=== PATIENT | male | born 1935 | race Caucasian/White ===

== ENCOUNTER 2023-10-13 12:41 | Inpatient (IN) ==
[2023-10-13 13:12] LABS: iSTAT Creatinine 1.3 mg/dl (0.6-1.3); iSTAT Hemoglobin 13.6 g/dl (14.0-18.0); iSTAT Ionized Calcium 1.22 mmol/l (1.12-1.32); iSTAT Potassium 4.3 mmol/L (3.3-5.0)
[2023-10-13 13:46] LABS: Alanine Aminotransferase 12 U/L (7-52); Albumin Globulin Ratio 1.2 (0.9-2); Albumin Level 4.1 gm/dl (3.4-5.0); Alkaline Phosphatase 70 U/L (34-104); Anion Gap 4 (3-11); Aspartate Aminotransferase 17 U/L (13-39); BUN Creatinine Ratio 24.4 (10-20); Bilirubin,Total 0.4 mg/dl (0.2-1.0); Blood Urea Nitrogen 30 mg/dl (6-23); Calcium 9.5 mg/dl (8.6-10.3); Carbon Dioxide 26 mmol/L (21-32); Chloride 112 mmol/L (98-107); Est GFR (African American) 60.4 ml/min; Est GFR (Non-African American) 52.1 ml/min; Globulin 3.5 gm/dl (2.5-4.0); Glucose 116 mg/dl (70-99(Fasting)); Lipase 16 U/L (11-82); Magnesium 2.3 mg/dl (1.7-2.4); Potassium 4.4 mmol/L (3.5-5.1); Sodium 142 mmol/L (136-145); Total Protein 7.6 gm/dl (6.0-8.3)
[2023-10-13 13:50] LABS: Troponin I High Sensitivity 19.6 pg/ml (0-20)
[2023-10-13 13:52] LABS: Partial Thromboplastin Ratio 0.9; Partial Thromboplastin Time 26 Seconds (21-31); Prothrombin Time 11.2 Seconds (9.0-12.0)
--- NOTE | 2023-10-13 13:53 | History & Physical Report ---
Date of Service October 13, 2023 Assessment & Plan (1) CHB (complete heart block): (2) Severe aortic stenosis: (3) BPH (benign prostatic hyperplasia): Plan Mr. Peacock is an 88 year old gentleman with history of aortic stenosis, BPH, GERD, COPD, HLD, HTN who is admitted due to dizziness and found to have high grade AV block with rates in 30s. Patient initially was hemodynamically stable outside of bradycardia, however, became hypotensive prompting x1 atropine and dopamine drip initiation in ED. Patient to be admitted to ICU for hemodynamic monitoring and inotrope while awaiting pacemaker placement. #Symptomatic bradycardia #High degree AV block #History of sinus bradycardia -Not on AV bj -Blood pressure currently stable -Admit ICU for cardiac monitoring iso severe bradycardia -Cardiology consult -continue dopamine -EP consult, pending device placement -Pacer pads in place NPO Appreciate Certified Medical Transcriptionist support while pending device placement Follow up TSH and lyme #COPD #history of Silicosis -Not on inhalers stable, no O2 requirement #Severe aortic stenosis -Not on any medications -Historically prefers conservative therapies and declines invasive procedures -Repeat ECHO pending #Gastroesophageal reflux disease without esophagitis -Not on PPI -PPI while in ICU #Spinal stenosis of lumbar region without neurogenic claudication -No active symptoms, not on medications at this time #BPH with obstruction/lower urinary tract symptoms -On home dusteride and terazosin -Will hold Terazosin at this time 2/2 above and bradycardia #Hyperlipidemia with target LDL less than 130 -Historically declined statin therapy #Meningioma -0.9cm, stable DVT scd ICU until device placement then plan for downgrade once stable and paced Admission and Anticipated Discharge Date Admission Date: Time spent evaluating patient, direct bedside care, chart review, placing orders, interpretation of diagnostic studies, discussion with consultants, patient, and family members, as well as other required patient management activities is 60 minutes. History of Present Illness Chief Complaint: dizziness Primary Care Provider: NO PCP Mr. Peacock is an 88 year old gentleman with past medical history remarkable for aortic stenosis, BPH, GERD, COPD, HLD, HTN who is admitted due to dizziness and found to have high grade AV block with rates in 30s. Patient reported ongoing issues with dizziness on exertion. Patient presented in 08/2023 for similar concerns but work up was negative at that time--EKG with 1st av block noted at that time. On presentation, In the ED, vitals were notable for BP of 150s initially then 70s prompting atropine and dopamine, HR of 30s with small increase to 40s with atropine and O2 sat of low 90s. EKG with AV node dissociation. ED interventions: atropine, dopamine Consultants: Cardiology. EP, ICU Patient to be admitted to ICU for further evaluation and management of high degree AV block pending urgent device placement Allergies Allergy/AdvReac Type Severity Reaction Status Date / Time No Known Allergies Allergy Verified 09/16/23 17:37 Home Medications Medication Instructions Recorded Confirmed Type terazosin 10 mg capsule 10 mg PO QAM 03/20/19 10/13/23 History dutasteride 0.5 mg capsule 0.5 mg PO QAM 09/25/21 10/13/23 History gabapentin 100 mg capsule 100 mg PO HS 12/28/21 10/13/23 History Past Med/Surg History Medical History Spinal stenosis Hyperlipemia Sleep apnea Lumbago History of esophageal reflux Chronic back pain Heart murmur Family History Other No significant family history Social History Smoking Status: Never smoker packs per day: 1; Hx Alcohol Use: No Hx Substance Use: No Preferred Language: Taiwanese Communication Ability: Effective Custom Framing Specialist Required: No Beliefs That Will Affect Care: None marital status: Current Living Situation: Spouse Feels Safe at Home: Yes Assistive Devices: Glasses Review of Systems Review of Systems: Constitutional: (-) fever/chills, (-) recent loss of weight, (-) appetite changes, (-) night sweats. Head: (-) headache, ++ dizziness. Eye: (-) blurring of vision, (-) double vision, (-) redness. Ear: (-) hearing loss, (-) discharge, (-) vertigo Nose: (-) discharge, (-) bleeding, (-) congestion, (-) post nasal drip. Throat: (-) sore throat, (-) hoarseness of voice, (-) odynophagia. Cardiovascular: (-) chest pain, (-) palpitations, (-) syncope, (-) orthopnea, (- ) PND, (-) leg swelling. Respiratory: (-) shortness of breath, (-) cough, (-) wheezing, (-) hemoptysis. Neuro: (-) weakness in extremities, (-) numbness, (-) tingling, (-) tremor. Gastrointestinal: (-) belly pain, (-) belly distension, (-) nausea, (-) vomiting, (-) diarrhea, (-) constipation, Genitourinary: (-) hematuria, (-) dysuria, (-) polyuria, (-) hesitancy, (-) frequency, (-) urinary incontinence. Musculoskeletal: (-) myalgia, (-) arthralgia. Skin: (-) rashes. Physical Exam Physical Exam: GENERAL APPEARANCE: AxOx4, tired appearing frail gentleman HEENT: NC, AT. MMM. EOMI, clear conjunctiva, oropharynx clear. NECK: Supple without lymphadenopathy. No stiffness or restricted ROM. HEART: irregular, bradycardic LUNGS: CTAB, moving air well. No crackles or wheezes are heard. ABDOMEN: Soft, nontender, nondistended with good bowel sounds heard. EXTREMITIES: Without cyanosis, clubbing or edema. NEUROLOGICAL: Grossly nonfocal. Alert and oriented, moving all 4 extremities. CN not formally tested but appear grossly intact. Observed to ambulate with normal gait. Skin: Warm and dry without any rash. Results & Data Results & Data Vital Signs (Past 12 Hours) Vital Signs Temp Pulse Resp BP Pulse Ox O2 Del Method 10/13/23 13:30 37 L 18 156/73 H 95 10/13/23 13:15 40 L 16 146/80 H 97 10/13/23 13:13 40 L 10/13/23 12:44 36.8 C 38 L 18 137/59 L 98 Room Air Laboratory Results [facility] 10/13/23 12:55 Sodium 142 Potassium 4.4 Chloride 112 H Carbon Dioxide 26 BUN 30 H Creatinine 1.23 Glucose 116 H Calcium 9.5 Liver Function 10/13/23 Range/Units 12:55 Total Bilirubin 0.4 (0.2-1.0) mg/dl AST 17 (13-39) U/L ALT 12 (7-52) U/L Alkaline Phosphatase 70 (34-104) U/L Albumin 4.1 (3.4-5.0) gm/dl Medications Administered Home Medications Medication Instructions Recorded Confirmed Last Taken terazosin 10 mg capsule 10 mg PO [facility] 03/20/19 10/13/23 09/16/23 dutasteride 0.5 mg capsule 0.5 mg PO [facility] 09/25/21 10/13/23 09/16/23 gabapentin 100 mg capsule 100 mg PO 12/28/21 10/13/23 09/15/23
--- NOTE | 2023-10-13 14:02 | XRay Report ---
XR chest 1V portable HISTORY: Chest pain, nonspecific COMPARISON: Chest 09/16/2023. FINDINGS: There are low lung volumes. No pneumothorax. The heart is mildly enlarged. There is diffuse interstitial/vascular thickening consistent with pulmonary edema. This has progressed in the interva l. Incidental note is made of a right azygos lobe. No focal lung consolidations to suggest a pneumoni a. Trace bilateral pleural effusions. IMPRESSION: Interval development of mild interstitial pulmonary edema and trace bilateral pleural effusions. ACT 112: Negative or not required by law. Electronically signed by: Michel Quezada M.D. 10/13/2023 1:59 PM
[2023-10-13] MEDS: DOPamine 400MG / 250ML D5W IV ONE (14:45)
--- NOTE | 2023-10-13 14:49 | History & Physical Bridge Note ---
Date of Service October 13, 2023 History & Physical Bridge Note I have examined the patient, reviewed the History & Physical and in the interval since the performance of the History & Physical I have noted the following changes of clinical significance: pt with CHB recommended an urgent pacemaker. Discussed the procedure and potential risks; consents signed.
--- NOTE | 2023-10-13 14:50 | Pre Anesthesia Assessment ---
Date of Service October 13, 2023 Pre Sedation Assessment Vital Signs Temp Pulse Resp BP Pulse Ox O2 Del Method 10/13/23 13:30 37 L 18 156/73 H 95 10/13/23 13:15 40 L 16 146/80 H 97 10/13/23 13:13 40 L 10/13/23 12:58 95 Room Air 10/13/23 12:47 Room Air 10/13/23 12:44 36.8 C 38 L 18 137/59 L 98 Room Air Cardiovascular + bradycardic Respiratory normal respiratory effort, lungs clear to auscultation Pre-Sedation Airway Assessment Smoking Status: Never smoker Hx Sleep Apnea: No Hx Difficult Intubation: No Short, Thick Neck: No Thyromental Distance: < 3.5 Finger Breadths Oral Cavity: + Dental Abnormalities Mallampati Class: II ASA: ASA3 NPO Status Date of Last Intake of Fluids: 10/13/23 Time of Last Intake of Fluids: 10:00 Date of Last Intake of Solid Food: 10/13/23 Time of Last Intake of Solid Foods: 10:00 Procedure Planning Contraindications for Sedation: none Current Medications Reviewed: Yes Notes The planned sedation has been discussed with the patient. Informed Consent was obtained. I have identified the patient, determined the appropriateness of sedation and have assessed the patient immediately prior to the procedure. All medicine(s) and interventions are by my order.
--- NOTE | 2023-10-13 14:53 | Cardiology Consultation ---
Date of Consultation October 13, 2023 Assessment & Plan (1) CHB (complete heart block): (2) Severe aortic stenosis: Plan IMPRESSION: 88-year-old male presenting with symptomatic complete heart block with hemodynamic instability and heart failure. Known severe aortic stenosis-- now classified as critical, declining invasive workup in the past. PLAN: CHB: Symptomatic complete heart block with hemodynamic instability, systolics in the 70s. Patient given atropine and started on dopamine infusion. NPO for emergent permanent pacemaker. Pacer pads in place and connected. Preliminary echo results showed AV velocities in the 5s, now classified as severe. Mildly hypervolemic on exam Lyme Pending. TSH ordered. Finalized Echocardiogram pending. Severe aortic stenosis: Velocities 4.4 on echo 2021. Declining invasive workup in the past. Velocities now in the 5s, critical noted. Case discussed with Dr. Beasley. Further recommendations pending assessment. I spent a total of 40 minutes on the date of service in preparation, delivery, and documentation of the care provided to the patient excluding any time spent in the performance of separately billed services. ALISIA Vallejo Department of Cardiology, [facility] This chart was completed in part utilizing Speech Voice Recognition Software. Grammatical errors, random word insertions, pronoun errors, and incomplete sentences are an occasional consequence of this system due to software limitations, ambient noise, and hardware issues. Any formal questions or concerns about the content, text, or information contained within the body of this dictation should be directly addressed to the provider for clarification. Supervising Physician Co-Signing Physician Notes Patient was seen and personally examined. Full assessment and plan as outlined by advanced provider above. Care and plan discussed in detail and endorsed personally 88-year-old male with severe aortic stenosis underlying conduction system disease with recent symptoms of lightheadedness and near syncope. Symptoms worsen last 24 hours ultimately resulting in ER presentation. EKG on presentation demonstrates A-V dissociation with ventricular escape rhythm in the 30s. During examination blood pressure notably declined and patient treated with IV atropine and begun on IV dopamine Plan dual-chamber pacemaker urgently today Previously tolerable at low-level activities prior to current complaints History of Present Illness Reason for Consultation: CHB Requesting Physician: Kae romano History of Present Illness 88-year-old male who presented to [facility] emergency department due to a 1-day history of dizziness and significant fatigue. On arrival patient was found to be in complete heart block with idioventricular escape beats on EKG as well and as telemetry. Heart rates ranging in the 30s to 40s. Patient chest pain-free but is having shortness of breath with minimal exertion. Denies palpitations. Notable lightheadedness but no syncope. Normally describes himself as a relatively active individual and enjoys spending time outside. Denies any recent tick bites. Lyme blood work pending. He is not currently on any AV kolby blocking agents Chest x-ray showing mild interstitial pulmonary edema with trace bilateral pleural effusions. Recently seen in the ED on 09/16/2023 due to intermittent dizziness. Symptomatic improvement with IV hydration. EKG at the time showed sinus bradycardia with a first-degree AV block with rates in the 50s. Patient was discharged home to follow-up as an outpatient. 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 Allergies Allergy/AdvReac Type Severity Reaction Status Date / Time No Known Allergies Allergy Verified 09/16/23 17:37 Home Medications Medication Instructions Recorded Confirmed Type terazosin 10 mg capsule 10 mg PO QAM 03/20/19 10/13/23 History dutasteride 0.5 mg capsule 0.5 mg PO QAM 09/25/21 10/13/23 History gabapentin 100 mg capsule 100 mg PO HS 12/28/21 10/13/23 History Patient History Medical History Spinal stenosis Hyperlipemia Sleep apnea Lumbago History of esophageal reflux Chronic back pain Heart murmur Family History Other No significant family history Social History Smoking Status: Never smoker packs per day: 1; Hx Alcohol Use: No Hx Substance Use: No Preferred Language: Sami Communication Ability: Effective Assisted Living Director Required: No Beliefs That Will Affect Care: None marital status: Current Living Situation: Spouse Feels Safe at Home: Yes Assistive Devices: Glasses Review of Systems Review of Systems: All systems reviewed & are unremarkable except as noted in HPI & below Physical Exam Constitutional: + ill appearing; no acute distress Neck: normal visual inspection and trachea midline Respiratory: normal respiratory effort Auscultation: + rales (BL bases ); no rhonchi and no wheezes Cardiovascular: Rate/Rhythm: + bradycardic (irregular ) Heart Sounds: normal S1, normal S2 (diminished) and + murmur (+3/6 systolic murmur ) Vessels: no JVD Extremities: no edema Gastrointestinal (Abdomen): Inspection/Auscultation: + abdomen distended Percussion/Palpation: + abdomen firm; abdomen nontender Skin: no rashes, warm and dry Neurologic: PERRL, EOMI, accommodation nl, no face palsy, no dysarthria Psychiatric: A+Ox3, euthymic affect Results & Data Vital Signs (Past 12 Hours) Vital Signs Temp Pulse Resp BP Pulse Ox O2 Del Method 10/13/23 13:30 37 L 18 156/73 H 95 10/13/23 13:15 40 L 16 146/80 H 97 10/13/23 13:13 40 L 10/13/23 12:58 95 Room Air 10/13/23 12:47 Room Air 10/13/23 12:44 36.8 C 38 L 18 137/59 L 98 Room Air Laboratory Results Cardiac Enzymes 10/13/23 Range/Units 12:55 AST 17 (13-39) U/L Troponin I High Sens 19.6 (0-20) pg/ml Coagulation 10/13/23 Range/Units 12:55 PT 11.2 (9.0-12.0) Seconds APTT 26 (21-31) Seconds Comprehensive Metabolic Panel 10/13/23 Range/Units 12:55 Sodium 142 (136-145) mmol/L Potassium 4.4 (3.5-5.1) mmol/L Chloride 112 H (98-107) mmol/L Carbon Dioxide 26 (21-32) mmol/L BUN 30 H (6-23) mg/dl Creatinine 1.23 (0.6-1.4) mg/dl Glucose 116 H (70-99(Fasting)) mg/dl Calcium 9.5 (8.6-10.3) mg/dl AST 17 (13-39) U/L ALT 12 (7-52) U/L Alkaline Phosphatase 70 (34-104) U/L Total Protein 7.6 (6.0-8.3) gm/dl Albumin 4.1 (3.4-5.0) gm/dl Intake and Output 10/12/23 10/13/23 10/13/23 22:59 06:59 14:59 Other: Weight 92 kg Weight Measurement Method Built in [facility] Patient Weight 10/14/23 06:59 Weight 92 kg Diagnostic Findings Inpatient echo Pending* Outpatient echocardiogram 11/06/2021 The examination is adequate to evaluate the referral indication. There was sinus bradycardia during the examination. The LV wall thickness is mildly increased (concentric). The left ventricular wall motion is normal. The qualitative LV ejection fraction is 60-64% (normal). The left atrium is mildly enlarged. The left ventricular diastolic function is mildly abnormal (grade I). The aortic valve is severely calcified. Severe aortic valve stenosis is present. The maximum continues wave Doppler velocity across aortic valve= 4.4 m/s, Mean Gradient=40 mm Hg, PAULINA=0.7 cm2. Trace aortic regurgitation is present. Mild tricuspid regurgitation is present. There is no evidence of pulmonary hypertension. The aortic root and proximal ascending aorta are normal sized. Compared to the previous study dated 12/20/2018, the severity of the aortic valve stenosis has progressed, severe aortic stenosis now present.
[2023-10-13 15:28] LABS: Thyroid Stimulating Hormone 3.828 uIu/ml (0.300-4.500)
[2023-10-13] MEDS: LIDOCAINE 1% LOCAL 20 ML VIAL ONE (15:56)
[2023-10-13] MEDS: WATER, STERILE FOR INJ 10 ML VIAL ONE (15:56)
[2023-10-13] MEDS: BUPIVACAINE 0.25% PF 30 ML VIAL ONE (15:56)
[2023-10-13] MEDS: ceFAZolin 330 MG/ML 1 GM VIAL ONE (15:56)
[2023-10-13] MEDS: VANCOMYCIN HCL 1000MG/20ML VIAL ONE (15:56)
--- NOTE | 2023-10-13 16:09 | Critical Care Consultation ---
Date of Consultation October 13, 2023 Assessment & Plan (1) CHB (complete heart block): (2) Severe aortic stenosis: Plan Impression: 88-year-old male presenting with complete heart block requiring pressors and taken urgently to the [facility] for permanent pacemaker. Recommendations: 1 player neurologic: No acute issues. 2. Cardiovascular: Complete heart block: Will reevaluate status post pacemaker. If the patient no longer requires pressors, it is unlikely he will require ICU. History of severe declining intervention previously. Follow-up echocardiogram pending. Per cardiology 3. Respiratory: History of COPD. No acute issues. 4. GI: N.p.o. for now but should be able to advance diet once pacemaker is implanted. 5. : History of BPH. Can restart medications once pacemaker in place. 6. Renal: No acute issues. Acid-base status electrolytes and fluid status adequate. 7. Heme-onc: No acute issues. 8. ID: No acute issues. Patient was critically ill on presentation requiring life-sustaining therapies. He is at significant risk of clinical deterioration without significant intervention. Total 35 minutes in critical care time was spent in evaluation management and coordination of care for this patient. Once the patient undergoes permanent pacemaker, he may not require ICU level care. Will reassess once he is paced. Thanks for the opportunity participating the care of this patient. Feel free to contact us with questions or concerns History of Present Illness Attending Physician: Cole Beasley MD History of Present Illness Asked by hospitalist to assist in evaluation of this patient with complete heart block and hypotension. History is obtained from of the electronic medical record as well as discussion with the hospitalist service. Patient is an 88-year-old male with a history of aortic stenosis and COPD who was brought to the hospital with dizziness and found to have complete heart block. He was initiated on dopamine in the emergency room but deteriorated and required higher doses and atropine. He was taken urgently to the electrophysiology lab for permanent pacemaker. The patient previously was noted to have a first-degree AV block. He has not had any falls or trauma. He denies chest pain. Does have known severe aortic stenosis but is apparently been fairly functional and had declined invasive procedures previously. Allergies Allergy/AdvReac Type Severity Reaction Status Date / Time No Known Allergies Allergy Verified 09/16/23 17:37 Home Medications Medication Instructions Recorded Confirmed Type terazosin 10 mg capsule 10 mg PO QAM 03/20/19 10/13/23 History dutasteride 0.5 mg capsule 0.5 mg PO QAM 09/25/21 10/13/23 History gabapentin 100 mg capsule 100 mg PO HS 12/28/21 10/13/23 History Patient History Medical History Spinal stenosis Hyperlipemia Sleep apnea Lumbago History of esophageal reflux Chronic back pain Heart murmur Family History Other No significant family history Social History Smoking Status: Never smoker packs per day: 1; Hx Alcohol Use: No Hx Substance Use: No Preferred Language: Mozambican Communication Ability: Effective Spin Table Operator Required: No Beliefs That Will Affect Care: None marital status: Current Living Situation: Spouse Feels Safe at Home: Yes Assistive Devices: Glasses Review of Systems Review of Systems: Please refer to admission H&P. No additions or deletions Physical Exam Constitutional: + ill appearing; no acute distress Neck: normal visual inspection and trachea midline Respiratory: normal respiratory effort Auscultation: + rales (BL bases ); no rhonchi and no wheezes Cardiovascular: Rate/Rhythm: + bradycardic (irregular ) Heart Sounds: normal S1, normal S2 (diminished) and + murmur (+3/6 systolic murmur ) Vessels: no JVD Extremities: no edema Gastrointestinal (Abdomen): Inspection/Auscultation: + abdomen distended Percussion/Palpation: + abdomen firm; abdomen nontender Skin: no rashes, warm and dry Neurologic: PERRL, EOMI, accommodation nl, no face palsy, no dysarthria Psychiatric: A+Ox3, euthymic affect Results & Data Results & Data Vital Signs (Past 12 Hours) Vital Signs Temp Pulse Resp BP BP Pulse Ox O2 Del Method 10/13/23 15:05 16 116/53 L 92 Room Air 10/13/23 14:45 39 L 12 158/60 H 94 10/13/23 14:41 43 L 19 172/64 H 99 10/13/23 14:30 37 L 19 73/59 L 98 10/13/23 14:15 36 L 20 170/79 H 97 10/13/23 14:00 36 L 20 166/72 H 97 10/13/23 13:45 37 L 11 L 151/85 H 97 10/13/23 13:30 37 L 18 156/73 H 95 10/13/23 13:15 40 L 16 146/80 H 97 10/13/23 13:13 40 L 10/13/23 12:58 95 Room Air 10/13/23 12:47 Room Air 10/13/23 12:44 36.8 C 38 L 18 137/59 L 98 Room Air Critical Care Results & Data Vital Signs (Past 12 Hours) Vital Signs Temp Pulse Resp BP BP Pulse Ox O2 Del Method 10/13/23 15:05 16 116/53 L 92 Room Air 10/13/23 14:45 39 L 12 158/60 H 94 10/13/23 14:41 43 L 19 172/64 H 99 10/13/23 14:30 37 L 19 73/59 L 98 10/13/23 14:15 36 L 20 170/79 H 97 10/13/23 14:00 36 L 20 166/72 H 97 10/13/23 13:45 37 L 11 L 151/85 H 97 10/13/23 13:30 37 L 18 156/73 H 95 10/13/23 13:15 40 L 16 146/80 H 97 10/13/23 13:13 40 L 10/13/23 12:58 95 Room Air 10/13/23 12:47 Room Air 10/13/23 12:44 36.8 C 38 L 18 137/59 L 98 Room Air Lab & Micro Results (Past 24 Hours) No Data to Display Na 142 mmol/L (136-145) 10/13/23 K 4.4 mmol/L (3.5-5.1) 10/13/23 Cl 112 mmol/L (98-107) H 10/13/23 CO2 26 mmol/L (21-32) 10/13/23 Anion Gap 4 (3-11) 10/13/23 BUN 30 mg/dl (6-23) H 10/13/23 Creatinine 1.23 mg/dl (0.6-1.4) 10/13/23 Estimated GFR ( Amer) 60.4 ml/min 10/13/23 Estimated GFR (Non-Af Amer) 52.1 ml/min 10/13/23 BUN/Creatinine Ratio 24.4 (10-20) H 10/13/23 Glu 116 mg/dl (70-99(Fasting)) H 10/13/23 Ca 9.5 mg/dl (8.6-10.3) 10/13/23 Total Bilirubin 0.4 mg/dl (0.2-1.0) 10/13/23 AST 17 U/L (13-39) 10/13/23 ALT 12 U/L (7-52) 10/13/23 Alkaline Phosphatase 70 U/L (34-104) 10/13/23 TP 7.6 gm/dl (6.0-8.3) 10/13/23 Albumin 4.1 gm/dl (3.4-5.0) 10/13/23 Globulin 3.5 gm/dl (2.5-4.0) 10/13/23 Albumin/Globulin Ratio 1.2 (0.9-2) 10/13/23 Mg 2.3 mg/dl (1.7-2.4) 10/13/23 12:55 Calcium Level 9.5 mg/dl (8.6-10.3) 10/13/23 12:55 Prothromb Time International Ratio 1.0 (0.9-1.1) 10/13/23 12:5 5 Diagnostic Findings (Past 24 Hours) Chest X-Ray 10/13/23 12:58 XR chest 1V portable HISTORY: Chest pain, nonspecific COMPARISON: Chest 09/16/2023. FINDINGS: There are low lung volumes. No pneumothorax. The heart is mildly enlarged. There is diffuse interstitial/vascular thickening consistent with pulmonary edema. This has progressed in the interval. Incidental note is made of a right azygos lobe. No focal lung consolidations to suggest a pneumonia. Trace bilateral pleural effusions. IMPRESSION: Interval development of mild interstitial pulmonary edema and trace bilateral pleural effusions. ACT 112: Negative or not required by law. Electronically signed by: Michel Quezada M.D. 10/13/2023 1:59 PM RT Ventilator Mngmt (Last Documented) Ventilator Ordered Settings Respiratory Rate 16 10/13/23 15:05 Ventilator - PT Measurements Respiratory Rate 16 Coding Level of Care Code 25245 CRITICAL CARE 1ST 30-74M Diagnoses CHB (complete heart block) I44.2 Severe aortic stenosis I35.0
[2023-10-13] MEDS: MIDAZOLAM HCL 1 MG/ML 2ML VIAL ONE (16:16)
[2023-10-13] MEDS: fentaNYL citrate PF 100 MCG/2 ML VIAL ONE (16:17)
--- NOTE | 2023-10-13 16:29 | Post Anesthesia Assessment ---
Date of Service October 13, 2023 Post Sedation Assessment Vital Signs Temp Pulse Resp BP BP Pulse Ox O2 Del Method 10/13/23 15:05 16 116/53 L 92 Room Air 10/13/23 14:45 39 L 12 158/60 H 94 10/13/23 14:41 43 L 19 172/64 H 99 10/13/23 14:30 37 L 19 73/59 L 98 10/13/23 14:15 36 L 20 170/79 H 97 10/13/23 14:00 36 L 20 166/72 H 97 10/13/23 13:45 37 L 11 L 151/85 H 97 10/13/23 13:30 37 L 18 156/73 H 95 10/13/23 13:15 40 L 16 146/80 H 97 10/13/23 13:13 40 L 10/13/23 12:58 95 Room Air 10/13/23 12:47 Room Air 10/13/23 12:44 36.8 C 38 L 18 137/59 L 98 Room Air Recovery Score Activity: Moves 4 extremities Respiration: Deep Breath/Cough Circulation: +/-20% PreAnes Value Consciousness: Fully Awake Oxygen Saturation: > 92% On Room Air Discharge Sedation Level of Care: Fast Track Phase II Post Sedation Plan On clinical assessment, the patient appears to have tolerated the sedation without complications. Patient is recovering as anticipated. Patient will continue to be monitored by nursing and may be discharged when sedation discharge criteria are met per below protocol. Upon Completions of procedure up to 15 minutes continue every 5 minute vital signs and the P.A.R. score; then discharge to a Phase I or Fast Track to Phase II per the following guidelines: * Discharge Patient to appropriate Phase II area if PAR is 8 or greater or return to pre- procedure baseline. The post - procedure orders will be as directed. * If PAR score is less than 8 or not return to pre-procedure baseline then patient will follow Phase I monitoring till PAR is reached for Phase II. The Phase I may be done in procedure room or may call to secure a Phase I area. * If naloxone or flumazenil are used for reversal, hold in Phase I for continued monitoring from when last reversal dose was given for a minimum of 60 minutes or longer pending the nurse and/or physician discretion of patient condition before discharge to Phase II. Please call the Sedation Physician to re-evaluate and complete post-note for discharge to Phase II area. Do NOT discharge from procedure sedation or Phase 1 until post- sedation evaluation note is complete by procedure /sedation MD Sedation Discharge Instructions to be given to the patient at discharge to home.
--- NOTE | 2023-10-13 16:35 | Operative Report ---
Post Operative Report DICTATED BY:Darby Peterson D.O. DATE OF PROCEDURE: . PREOPERATIVE DIAGNOSES: Complete heart block POSTOPERATIVE DIAGNOSIS: Same PROCEDURE: A dual-chamber rate responsive permanent pacemaker and intracardiac electrogram His bundle recordings, along with a peripheral venogram under fluoroscopic guidance. SURGEON: Darby Peterson DO ASSISTANTS: None. ANESTHESIA: Monitored conscious sedation administered under my supervision by Calista Cha. Start time 15:41, end time 16:28, a total of 2 mg of Versed and 50 mcg of fentanyl. INTRAVENOUS FLUIDS: 170 mL. CONTRAST: 14 mL. ANTIBIOTICS: 2 grams of Ancef. ADDITIONAL MEDICATIONS: dopamine infusion during the procedure BLOOD LOSS: 70 mL. URINE OUTPUT: Not applicable. SPECIMENS: None. FINDINGS: See below. DRAINS: None. COMPLICATIONS: None. CONDITION: Stable. INDICATIONS: This is a 88-year-old gentleman who has a past medical history severe , HTN, HLD, RBBB. He presented to [facility] ER in [facility] with ventricular escape rhythm. He recommended an urgent pacemaker. CONSENT: Consent was obtained prior to the patient going into the electrophysiology lab. The patient was informed of the risks, benefits, and alternatives to the procedure. Risks include, but not limited to, sudden cardiac , cardiac arrhythmias, cerebrovascular accident, myocardial infarction, injury to his blood vessels, chamber of the heart and lung, bleeding and infection. The patient understood these risks and agreed to the procedure as planned. Informed consent was obtained. DESCRIPTION OF PROCEDURE: The patient was brought into electrophysiology lab in a fasting state. He was connected to continuous cardiac monitoring. A timeout was performed to ensure the patient's identity and procedure correctly. He was prepped and draped in the left infraclavicular space in normal surgical standard fashion. Monitored conscious sedation was given throughout the procedure for the patient's comfort level. West precautions were maintained throughout the procedure. Prophylactic antibiotics were given prior to incision. A 20 mL of 1% lidocaine and bupivacaine mixture were given in the left deltopectoral groove. An incision was made in the left deltopectoral groove. Blunt dissection was performed down to the pectoralis muscle. Then, using blunt dissection over the pectoralis muscle within the pectoral fascia, a pacemaker pocket was created. Then, a peripheral venogram was performed to identify the axillary vein. Venous axillary access was obtained through a needlestick without any problems. A guidewire was inserted without any resistance. A 6- Somali sheath was inserted over the guidewire without any resistance. Dilator was removed and a second guidewire was inserted through the sheath to allow for retained venous access. Then a 9 Somali sheath was inserted over one of the guidewires. The guidewire and dilator were removed. Then, the [employer] 3D medium sheath was inserted through the 9-Somali sheath over a Glidewire into the right ventricle. The Glidewire and dilator were removed. Then, the left bundle lead was advanced through the sheath and intracardiac electrogram His bundle recordings were performed when the camera was in ECHOLS 10. Once I found where the His bundle is, see below for results, I then moved the camera to ECHOLS 30 and marked where the His bundle was on my fluoroscopy screen. I came down about 2 cm from this in a line that would extend out to the apex and then started coming on pacing. Once I found an area where I had a nice W formed pace complex in my lead V1, I then moved the camera to [employer] 30. Then the helix was extended into the septum. Then the helix locking tool was placed. Then the lead was screwed further into the septum while pacing by giving slow clockwise turns. of note I did have to reposition it 2 times. The paced complex changed to a nice R' in V1 and the pacing stim to peak QRS in V6 was good. I then gave contrast through the sheath to see how far the lead was into the septum and then I slit the [employer] 3D medium sheath under fluoroscopic guidance and left the 9-Somali sheath in while I positioned the right atrial lead. A 6-Somali sheath was inserted over the retained guidewire, the guidewire and dilator removed. The right atrial lead was then advanced into right atrium and positioned into right atrial appendage under fluoroscopic guidance. There was adequate pacing and sensing thresholds and no diaphragmatic stimulation with high output pacing. The 6-Somali sheath was peeled away and the lead was fixated to the pectoralis muscle using 0 silk suture. The 9-Somali sheath around the left bundle lead was peeled away and the lead was fixated to pectoralis muscle using 0 silk suture. The pocket was flushed with copious amounts of vancomycin and saline wash and inspected for hemostasis. The leads were then attached to the pulse generator making sure the pins were in appropriate position, passed set screws, and set screws were all tightened. Pulse generator was then placed in the pocket, m aking sure the leads were lying flat beneath the device. The incision was closed in a 3-layer fashion using 2-0 Vicryl interrupted suture, followed by 3-0 Vicryl interrupted suture, followed by 4-0 Monocryl running stitch. Then a primaseal dressing was placed EQUIPMENT: 1. Pulse generator is a ABPathfinder MRI Model Number [id number] SN: [id number] 2. Right atrial lead, ProQuoM Tendril STS 8TC SN: [id number] 3. Left bundle lead, Schuster SJM Tendril STS 8TC SN: [id number] INTRAPROCEDURAL FINDINGS: 1. Intracardiac electrogram His bundle recordings, AH is 150 milliseconds, HV is 45 milliseconds. 2. Right atrial lead, P waves 1.3 millivolts, impedance 406 ohms, threshold 0.6 volts at 0.4 milliseconds. 3. Left bundle lead, R waves 10.8 millivolts, impedance 665 ohms, threshold 1 volts at 0.4 milliseconds. FINAL MEASUREMENTS THROUGH THE DEVICE: 1. Right atrial lead, P waves 1.2 millivolts, impedance 430 ohms, threshold 0.5 volt at 0.4 milliseconds. 2. Left bundle lead, R waves 6.3 millivolts, impedance 580 ohms, threshold 1.25 volts at 0.4 milliseconds. FINAL PARAMETERS: DDD 60/120, right atrial amplitude 3.5 volts, pulse width 0.4 milliseconds, sensitivity 0.5 millivolts. Left bundle lead amplitude 3.5 volts, pulse width 0.4 milliseconds, sensitivity 2 millivolts. IMPRESSION: Successful dual chamber rate responsive permanent pacemaker under fluoroscopic guidance along with peripheral venogram and intracardiac electrogram His bundle recordings, all under fluoroscopic guidance secondary to complete heart block PLAN: Monitor the patient post-procedure. A 12-lead ECG, chest x-ray. He is not to lift the left elbow or left shoulder for 1 month. He cannot lift more than 10 pounds with the left arm for 2 weeks. He is to keep the dressing on and dry until his wound check next week.
[2023-10-13] MEDS ORDERED: POLYETHYLENE (MIRALAX) 17 GM PACK PO PRN (17:28)
[2023-10-13] MEDS: ATROPINE SULFATE 0.1 MG/ML 10ML SYR IV STA (18:37)
[2023-10-13] MEDS: STAT IV Infusion **Titration per Protocol STA (18:37)
[2023-10-13] MEDS: DOPamine / D5W 400 MG/250 ML BAG IV SCH (18:38)
[2023-10-13] MEDS: ICU Protocol for HYPERglycemia SCH (18:38)
--- NOTE | 2023-10-13 19:17 | Communication Note ---
Date of Service: October 13, 2023 Pacemaker placed. Patient clear for transfer to PCU/Tele. Cardiology following EP note reviewed:"PLAN: Monitor the patient post-procedure. A 12-lead ECG, chest x-ray. He is not to lift the left elbow or left shoulder for 1 month. He cannot lift more than 10 pounds with the left arm for 2 weeks. He is to keep the dressing on and dry until his wound check next week. " CXR ordered by EP
--- NOTE | 2023-10-13 19:22 | XRay Report ---
XR chest 1V portable CLINICAL HISTORY: s/p ppm ensure no PTX COMPARISON STUDY: Chest CT March 13, 2019. Chest radiograph October 13, 2023. FINDINGS: There is no pneumothorax following placement of a dual-lead left subclavian pacemaker. Pulm onary edema has improved. Underlying reticulonodular interstitial thickening is likely chronic. No pl eural effusions are identified. Cardiomediastinal silhouette is stable. IMPRESSION: No pneumothorax following placement of a dual-lead left subclavian pacemaker. ACT 112: Negative or not required by law. Electronically signed by: Walter Wilson M.D. 10/13/2023 7:21 PM
--- NOTE | 2023-10-13 19:37 | Electrocardiogram Report ---
Test Reason : Blood Pressure : / mmHG Vent. Rate : 040 BPM Atrial Rate : 000 BPM P-R Int : 000 ms QRS Dur : 160 ms QT Int : 510 ms P-R-T Axes : 000 111 -56 degrees QTc Int : 415 ms with complete heart block Idioventricular rhythm with occasional Premature ventricular complexes Right bundle branch block Left posterior fascicular block Bifascicular block Marked T-wave abnormality, consider inferolateral ischemia Abnormal ECG When compared with ECG of 16-SEP-2023 16:38, Idioventricular rhythm has replaced Sinus rhythm Confirmed by David Hector ([id number]) on 10/13/2023 7:37:30 PM Referred By: Confirmed By:Vicente Hector
[2023-10-13] MEDS: GABAPENTIN 100 MG CAP PO SCH (20:46)
--- NOTE | 2023-10-13 22:29 | Emergency Department Note ---
History of Present Illness General Chief complaint: Hypotension Stated complaint: DIZZY, LOW BP Time Seen by Provider: 10/13/23 12:48 History of Present Illness Provider complaint: Dizzy Onset (ago): day(s) 2 88-year-old male presents emergency department for dizziness. Patient states he has been feeling very dizzy for the last 2 days. Patient states he thought his blood pressure was low. No chest pain difficulty breathing nausea vomiting diarrhea. He reports dizziness when he gets up to walk but no dizziness while he is lying down. No hematuria or dysuria. No melena hematochezia. Home Medications Medication Instructions Recorded Confirmed Type terazosin 10 mg capsule 10 mg PO QAM 03/20/19 10/13/23 History dutasteride 0.5 mg capsule 0.5 mg PO QAM 09/25/21 10/13/23 History gabapentin 100 mg capsule 100 mg PO 12/28/21 10/13/23 History Allergies Allergy/AdvReac Type Severity Reaction Status Date / Time No Known Allergies Allergy Verified 09/16/23 17:37 Past Med/Surg History Medical History Spinal stenosis Hyperlipemia Sleep apnea Lumbago History of esophageal reflux Chronic back pain Heart murmur Family History Other No significant family history Social History Smoking Status: Never smoker packs per day: 1; Second Hand Exposure: No; Do You Dip or Chew Tobacco: No; Tobacco Cessation Education Requested by Patient: No Hx Alcohol Use: No Hx Substance Use: No Preferred Language: Nigerien Communication Ability: Effective Life Educator Required: No Beliefs That Will Affect Care: None marital status: Current Living Situation: Spouse Other Information That Helps Us Care for You: No Feels Safe at Home: Yes Safety Concerns: Feels Safe At This Time Assistive Devices: None Physical Exam Vital Signs Vital Signs - 24 hr 10/13/23 12:44 10/13/23 12:47 10/13/23 12:58 Temperature 36.8 C Temperature Source Skin Pulse Rate 38 L Pulse Rate from SpO2 Sensor Respiratory Rate 18 Respiratory Effort / Characteristics Respiratory Depth Respiratory Pattern Blood Pressure 137/59 L Blood Pressure [Right Arm] Blood Pressure Mean 85 Blood Pressure Mean [Right Arm] Blood Pressure Position [Right Arm] Pulse Oximetry 98 95 Oxygen Delivery Method Room Air Room Air Room Air Sepsis Recent Fever Within 48 Hours No Sepsis New/Unexplained Change in Mental Status No Sepsis Action Taken by Nursing No Action Required 10/13/23 13:13 10/13/23 13:15 10/13/23 13:30 Temperature Temperature Source Pulse Rate 40 L 40 L 37 L Pulse Rate from SpO2 Sensor 38 L 39 L Respiratory Rate 16 18 Respiratory Effort / Characteristics Respiratory Depth Respiratory Pattern Blood Pressure 146/80 H 156/73 H Blood Pressure [Right Arm] Blood Pressure Mean 102 100 Blood Pressure Mean [Right Arm] Blood Pressure Position [Right Arm] Pulse Oximetry 97 95 Oxygen Delivery Method Sepsis Recent Fever Within 48 Hours Sepsis New/Unexplained Change in Mental Status Sepsis Action Taken by Nursing 10/13/23 13:45 10/13/23 14:00 10/13/23 14:15 Temperature Temperature Source Pulse Rate 37 L 36 L 36 L Pulse Rate from SpO2 Sensor 38 L 37 L 37 L Respiratory Rate 11 L 20 20 Respiratory Effort / Characteristics Respiratory Depth Respiratory Pattern Blood Pressure 151/85 H 166/72 H 170/79 H Blood Pressure [Right Arm] Blood Pressure Mean 107 103 109 Blood Pressure Mean [Right Arm] Blood Pressure Position [Right Arm] Pulse Oximetry 97 97 97 Oxygen Delivery Method Sepsis Recent Fever Within 48 Hours Sepsis New/Unexplained Change in Mental Status Sepsis Action Taken by Nursing 10/13/23 14:30 10/13/23 14:41 10/13/23 14:45 Temperature Temperature Source Pulse Rate 37 L 43 L 39 L Pulse Rate from SpO2 Sensor 36 L 43 L 38 L Respiratory Rate 19 19 12 Respiratory Effort / Characteristics Respiratory Depth Respiratory Pattern Blood Pressure 73/59 L 172/64 H 158/60 H Blood Pressure [Right Arm] Blood Pressure Mean 63 100 92 Blood Pressure Mean [Right Arm] Blood Pressure Position [Right Arm] Pulse Oximetry 98 99 94 Oxygen Delivery Method Sepsis Recent Fever Within 48 Hours Sepsis New/Unexplained Change in Mental Status Sepsis Action Taken by Nursing 10/13/23 15:05 Temperature Temperature Source Pulse Rate Pulse Rate from SpO2 Sensor Respiratory Rate 16 Respiratory Effort / Characteristics Non-Labored Respiratory Depth Normal Respiratory Pattern Regular Blood Pressure Blood Pressure [Right Arm] 116/53 L Blood Pressure Mean Blood Pressure Mean [Right Arm] 74 Blood Pressure Position [Right Arm] Lying Pulse Oximetry 92 Oxygen Delivery Method Room Air Sepsis Recent Fever Within 48 Hours Sepsis New/Unexplained Change in Mental Status Sepsis Action Taken by Nursing Physical Exam GENERAL: oriented to person, place, and time. appears well-developed and well- nourished. HENT: Exam performed. - Head: Normocephalic and atraumatic. EYES: Conjunctivae and EOM are normal. Right eye exhibits no discharge. Left eye exhibits no discharge. No scleral icterus. NECK: Normal range of motion. Neck supple. No JVD present. CV: Bradycardic rate, irregular rhythm, normal heart sounds and intact distal pulses. There is no peripheral edema. Palpable radial pulses bue. PULM/CHEST: Effort normal and breath sounds normal. No respiratory distress. No stridor. no wheezes. no rales. ABD: The abdomen is soft. There is no tenderness. NEURO: Motor and sensation grossly intact. SKIN: Skin is warm and dry. He is not diaphoretic. PSYCH: normal mood and affect. Behavior is normal. Judgment and thought content normal. Course Course 1248: The patient was evaluated in room A1. A complete history and physical exam was performed Cardiac monitoring: An order was placed for continuous cardiac monitoring. The monitor shows a rate of 30 with heart block rhythm interpreted by me Patient was immediately seen in the resuscitation bay. Telemetry monitoring EKG is concerning for third-degree heart block. Will discuss with cardiology on- call Dr. Lewis. Patient's blood pressure is stable, reporting no chest pain, no dizziness while in bed. Will hold off on any atropine or dopamine at this time 1325: Vital signs stable. I-STAT shows a normal potassium. Patient continues to report no chest pain, dizziness while lying down, or discomfort at this time. Patient remains in third-degree heart block. Discussed case with Dr. Lewis agrees that the patient is in third-degree heart block. He agrees to hold off on any interventions at this time as patient is hemodynamically stable and asymptomatic. 1443: Patient was being evaluated by the admitting team Dr. Newsome as well as Dr. Beasley from cardiology. Patient became hypotensive. Atropine 1 mg was given at bedside and Dr. Beasley requested dopamine be started on the patient. Patient be admitted to the ICU. Administered Medications Gabapentin (Gabapentin 100 Mg Cap) 100 mg PO HS [facility] Stop: 11/12/23 20:59 Last Admin: 10/13/23 20:46 Dose: 100 mg Documented By: Discontinued Medications Atropine Sulfate (Atropine Sulfate 0.1 Mg/Ml 10ml Syr) 1 mg IV NOW STA Stop: 10/13/23 14:42 Last Admin: 10/13/23 18:37 Dose: Not Given Documented By: [facility] Bupivacaine HCl (Bupivacaine 0.25% Pf 30 Ml Vial) Confirm Administered Dose 30 ml .ROUTE .STK-MED ONE Stop: 10/13/23 15:07 Last Admin: 10/13/23 15:56 Dose: 30 ml Documented By: [employer]PER[employer] Cefazolin Sodium (Cefazolin 330 Mg/Ml 1 Gm Vial) Confirm Administered Dose 1,980 mg .ROUTE .STK-MED ONE Stop: 10/13/23 15:29 Last Admin: 10/13/23 15:56 Dose: 2,000 mg Documented By: [employer] OPER[employer] Dopamine HCl/Dextrose (Dopamine 400mg / 250ml D5w) Confirm Administered Dose 400 mg IV .STK-MED ONE Stop: 10/13/23 14:41 Last Admin: 10/13/23 14:45 Dose: 2 mcg.per.kg Documented By: K Fentanyl Citrate (Fentanyl Citrate Pf 100 Mcg/2 Ml Vial) Confirm Administered Dose 100 mcg .ROUTE .STK-MED ONE Stop: 10/13/23 15:29 Last Increment: 10/13/23 16:17 Dose: 50 mcg Documented By: [employer] BLENDER OPERATOR Dopamine HCl/Dextrose (Dopamine / D5w) 400 mg in 250 mls @ 17.25 mls/hr IV .[id number] XAVIER; Protocol Stop: 11/12/23 14:44 Last Admin: 10/13/23 18:38 Dose: Not Given Documented By: [facility] Lidocaine HCl (Lidocaine 1% Local 20 Ml Vial) Confirm Administered Dose 20 ml .ROUTE .STK-MED ONE Stop: 10/13/23 15:06 Last Admin: 10/13/23 15:56 Dose: 20 ml Documented By: [employer]ENDER OPERATOR Midazolam HCl (Midazolam Hcl 1 Mg/Ml 2ml Vial) Confirm Administered Dose 2 mg .ROUTE .STK-MED ONE Stop: 10/13/23 15:29 Last Admin: 10/13/23 16:16 Dose: 2 mg Documented By: [employer]END[employer] OPERATOR Miscellaneous (Stat Iv Infusion Titration Per Protocol) 1 each N/A NOW STA Stop: 10/13/23 14:42 Last Admin: 10/13/23 18:37 Dose: Not Given Documented By: [facility] Miscellaneous (Icu Protocol For Hyperglycemia) 1 each N/A ACHS XAVIER Stop: 10/15/23 17:27 Last Admin: 10/13/23 18:38 Dose: Not Given Documented By: [facility] Sterile Water (Water, Sterile For Inj 10 Ml Vial) Confirm Administered Dose 10 ml .ROUTE .STK-MED ONE Stop: 10/13/23 15:06 Last Admin: 10/13/23 15:56 Dose: 10 ml Documented By: [facility] Vancomycin HCl (Vancomycin Hcl 1000mg/20ml Vial) Confirm Administered Dose 50 mg .ROUTE .STK-MED ONE Stop: 10/13/23 15:06 Last Admin: 10/13/23 15:56 Dose: 50 mg Documented By: [facility]EL[facility] Critical Care Time Critical Care Time: Yes Total Critical Care Time: 82 I have personally spent greater than 82 minutes of critical care time in the direct management of this patient. This includes bedside care, interpretation of diagnostic studies, and testing, discussion with consultants, patient, and family members, and other required patient management activities. This 82 minutes is in excess of all separately billable procedures. Medical Decision Making Laboratory Data Attestation: I reviewed the patient's lab results. 10/13/23 12:55 Lab Results 10/13/23 10/13/23 10/13/23 Range/Units 12:55 13:00 14:54 POC Hgb 13.6 L (14.0-18.0) g/dl POC Hct 40 L (42-52) % PT 11.2 (9.0-12.0) Seconds INR 1.0 (0.9-1.1) APTT 26 (21-31) Seconds PTT Ratio 0.9 POC Sodium 144 (135-144) mmol/L Sodium 142 (136-145) mmol/L POC Potassium 4.3 (3.3-5.0) mmol/L Potassium 4.4 (3.5-5.1) mmol/L POC Chloride 111 (101-112) mmol/L Chloride 112 H (98-107) mmol/L Carbon Dioxide 26 (21-32) mmol/L POC Total CO2 25 (24-31) mmol/L Anion Gap 4 (3-11) POC Anion Gap 14.0 L (16-25) mmol/L POC BUN 28 H (7-18) mg/dl BUN 30 H (6-23) mg/dl Creatinine 1.23 (0.6-1.4) mg/dl POC Creatinine 1.3 (0.6-1.3) mg/dl Est Cr Clr Drug Dosing Not Reportable Est GFR ( Amer) 60.4 ml/min Est GFR (Non-Af Amer) 52.1 ml/min BUN/Creatinine Ratio 24.4 H (10-20) Glucose 116 H (70-99(Fasting)) mg/dl POC Glucose (other) 112 H (70-99) mg/dl Calcium 9.5 (8.6-10.3) mg/dl POC Ioniz Calcium Rin 1.22 (1.12-1.32) mmol/l Magnesium 2.3 (1.7-2.4) mg/dl Total Bilirubin 0.4 (0.2-1.0) mg/dl AST 17 (13-39) U/L ALT 12 (7-52) U/L Alkaline Phosphatase 70 (34-104) U/L Troponin I High Sens 19.6 (0-20) pg/ml Total Protein 7.6 (6.0-8.3) gm/dl Albumin 4.1 (3.4-5.0) gm/dl Globulin 3.5 (2.5-4.0) gm/dl Albumin/Globulin Ratio 1.2 (0.9-2) Lipase 16 (11-82) U/L TSH 3.828 (0.300-4.500) uIu/ml Lyme Disease Screen Negative (Negative) Imaging Data Radiologist's Impression: Chest X-Ray 10/13/23 12:58 XR chest 1V portable HISTORY: Chest pain, nonspecific COMPARISON: Chest 09/16/2023. FINDINGS: There are low lung volumes. No pneumothorax. The heart is mildly enlarged. There is diffuse interstitial/vascular thickening consistent with pulmonary edema. This has progressed in the interval. Incidental note is made of a right azygos lobe. No focal lung consolidations to suggest a pneumonia. Trace bilateral pleural effusions. IMPRESSION: Interval development of mild interstitial pulmonary edema and trace bilateral pleural effusions. ACT 112: Negative or not required by law. Electronically signed by: Michel Quezada M.D. 10/13/2023 1:59 PM ECG Data Attestation: I personally reviewed and interpreted this ECG as follows: Additional Comments: EKG #1 at 1253: Third-degree heart block with a rate of 40. QRS [address] elevation or ST depression EKG #2 at 1301: Third-degree heart block with a rate of 38. QRS [address] elevation or ST depression. [facility] Narrative 1248: The patient was evaluated in room A1. A complete history and physical exam was performed Cardiac monitoring: An order was placed for continuous cardiac monitoring. The monitor shows a rate of 30 with heart block rhythm interpreted by me Patient was immediately seen in the resuscitation bay. Telemetry monitoring EKG is concerning for third-degree heart block. Will discuss with cardiology on- call Dr. Lewis. Patient's blood pressure is stable, reporting no chest pain, no dizziness while in bed. Will hold off on any atropine or dopamine at this time 1325: Vital signs stable. I-STAT shows a normal potassium. Patient continues to report no chest pain, dizziness while lying down, or discomfort at this time. Patient remains in third-degree heart block. Discussed case with Dr. Lewis agrees that the patient is in third-degree heart block. He agrees to hold off on any interventions at this time as patient is hemodynamically stable and asymptomatic. 1443: Patient was being evaluated by the admitting team Dr. Newsome as well as Dr. Beasley from cardiology. Patient became hypotensive. Atropine 1 mg was given at bedside and Dr. Beasley requested dopamine be started on the patient. Patient be admitted to the ICU. Impression & Plan Third degree heart block Discharge Plan Visit Data Chief Complaint: Hypotension Stated Complaint: DIZZY, LOW BP ED Provider: Malvin Pleitez Discharge Problem: Third degree heart block Patient Disposition: Admitted As Inpatient Discharge Instructions Interventions: ED Discharge Assessment Last Done: 10/13/23 15:00
--- OUTSIDE RECORDS SUMMARY | 2023-10-13 23:28 | External Medical Summary | Summary of Care ---
Author Name Unknown Organization [facility] Address [address] [place] [address] Phone [phone] Care Team Providers Care Senior Medical Technologist Name Role Phone Karyn Tomas MD Primary Care Provide r Reason for Visit * Reason Comments Medication Refill Encounter Details Date Type Department Care Team (Late st Contact Info) Description 10/01/2023 Refill Family Medicine [address] [phone] Amadeo Thorpe MD [address] [place] [address] [place] [address] Chronic bilateral low back pain without sciatica Allergies No known active allergiesdocumented as of this encounter (statuses as of 10/04/2023) Medications Medication Sig Dispensed Refills Start Date End Date Status Baclofen 20 MG Oral TabletIndications:C hronic bilateral low back pain without sciatica,Spinal stenosis of lumbar region without neurogenic claudication,Degene ration of lumbosacral intervertebral disc,Cervicalgia Take 1 Tablet by mouth 3 times a day. As needed 60 Tablet 0 05/15/2021 Active Triamcinolone Acetonide 0.1 % External Ointment (Aristocort)Indicat ions:LSC (lichen simplex chronicus),Multiple excoriations Apply 2x daily (or more if itchy instead of scratching) to back, elbows, knuckles or other areas on body that are bothersome until resolved 454 g 0 06/30/2021 Active Polyethylene Glycol 3350 17 GM/SCOOP Oral Powder (MiraLax) Take by mouth 17 g in the morning. One cap full in juice, to effect 1 stool per day. .. 850 g 3 10/03/2021 Active B-12 1000 MCG Oral TabletIndications:B 12 deficiency Take by mouth 1 Tablet daily . 0 12/10/2021 Active Vitamin C 500 MG Oral Capsule Take by mouth . 0 03/12/2022 Active Terazosin HCl 10 MG Oral CapsuleIndications: BPH with obstruction/lower urinary tract symptoms Take 1 Capsule by mouth at bedtime. 90 Capsule 3 03/31/2023 Active Dutasteride 0.5 MG Oral Capsule (Avodart)Indication s:BPH with obstruction/lower urinary tract symptoms Take 1 Capsule by mouth in the morning. 90 Capsule 3 03/31/2023 Active Gabapentin 100 MG Oral Capsule (Neurontin)Indicati ons:Degeneration of lumbosacral intervertebral disc TAKE ONE CAPSULE BY MOUTH EVERY DAY BEFORE BEDTIME 100 Capsule 1 06/17/2023 4 Active traMADol HCl 50 MG Oral Tablet (Ultram)Indications :Chronic bilateral low back pain without sciatica Take 1 Tablet by mouth daily as needed for Pain, Severe. 30 Tablet 0 10/04/2023 Active traMADol HCl 50 MG Oral Tablet (Ultram)Indications :Chronic bilateral low back pain without sciatica TAKE ONE TABLET BY MOUTH EVERY SIX HOURS NEEDED FOR SEVERE PAIN 60 Tablet 0 06/10/2023 4 Discontinu ed(Refill) documented as of this encounter (statuses as of 10/04/2023) Active Problems Problem Noted Date Diagnosed Date Adjustment disorder with depressed mood 04/20/20 23 Multiple thyroid nodules 04/20/2023 Atherosclerosis of aorta 04/20/2023 Atherosclerosis of coronary artery of [place] heart without angina pectoris 04/20/2023 Bradycardia 02/25/2023 Occupational exposure to other risk factors 02/26 Overview: [place] Silicosis 03/12/2022 COPD, group B, by GOLD 2017 classification 03/12 Constipation 12/10/2021 Non-seasonal allergic rhinitis 08/19/2021 Chronic rhinosinusitis 08/19/2021 Cervicalgia 05/07/2016 Decreased anal sphincter tone 04/28/2013 BPH with obstruction/lower urinary tract symptom s 10/06/2011 Hyperlipidemia with target LDL less than 130 03/2012 Overview: ICD-10 update of inactive term ADVANCE DIRECTIVE INFORMATION 09/02/2005 Overview: No, Advance Directive brochure offered , patient declined. Sleep apnea Gastroesophageal reflux disease without esophagi tis LUMB-LUMBOSAC DISC DEGEN Spinal stenosis of lumbar re gion without neurogenic claudication Acquired spondylolisthesis Severe aortic stenosis Overweight (BMI 25.0-29.9) documented as of this encounter (statuses as of 10/04/2023) Resolved Problems Problem Noted Date Diagnosed Date Resolved Date Primary hypertension 12/02/2018 021 Reversible airway obstruction 12/02/2018 03/11/2022 Lumbar degenerative disc disease 04/28/2013 04/28/2013 Chronic back pain 04/28/2013 05/04/2014 Anal sphincter incompetence 04/28/2013 04/28/2013 BPH without obstruction/lowe r urinary tract symptoms 07/02/2011 10/06/2011 Obesity, Class I, BMI 30.0-3 4.9 (see actual BMI) 09/19/2009 06/26/2019 Overview: Per Obesity Taxonomy Dyslipidemia, goal to be determined 09/13/2008 09/26/2010 BPH with obstruction/lower u rinary tract symptoms 08/29/2003 10/06/2011 COPD, severity to be determined 08/29/2003 04/02/2011 LUMBAGO 05/04/2014 OBESITY, UNSPECIFIED 010 Overview: Per Obesity Taxonomy Benign prostatic hyperplasia 07/02/2011 Overview: ICD-10 update of inactive term ICD-10 update of inactive term Disorder of intervertebral disc 12/25/2013 documented as of this encounter (statuses as of 10/04/2023) Immunizations Name Administration Dates Next Due COVID-19 mRNA, LNP-s, No Pre serve, 2-Dose Series (Moderna) 09/06/2020,08/09/2020 COVID-19, LNP-s, No Preserve , Lex-sucrose, Ages 12+ (Pfizer) 01/20/2022 COVID-19, MRNA-LNP, 23-24, P F, 30 MCG/0.3 mL, 12 YRS AND ABOVE, IM (PFIZER-Comirnaty) 05/12/2023 COVID-19, mRNA, LNP-s, PF, B ooster, 100mcg/0.5mg (Moderna) 05/06/2021 Covid-19, Mrna, Lnp-s, Pf, B ivalent, 30 Mcg, IM, 12 yrs and above (Pfizer) 06/02/2022 Pneumococcal Conjugate Vacc, 13 Valent (Prevnar) 11/01/2014 Pneumococcal Polysaccharide PPV23 (Pneumovax) 04/24/2008 Season Influenza, Quad, PF, Adjuvanted, 65+ Yrs, IM (FLUAD) 03/20/2020 Seasonal Influenza, PF, 6 M & above, IM , (FluLaval or Fluzone) 05/24/2018,05/11/2017 Seasonal Influenza, Quadriva lent Hd (Fluzone Hd) 05/12/2023,05/05/2022,05/15/2021 Seasonal Influenza, Quadriva lent, No Preserve, IM 05/07/2016,05/06/2015 Seasonal Influenza, Split, I IV3, With Preserve, Inj 05/04/2014,03/15/2013,04/24/2012,04/06,03/25/2010,03/18/2009,04/24/2008 ,04/13/2006 Seasonal Influenza, Trivalen t, Adjuvanted, 65+ yrs 04/10/2019 TD - Tetanus/Diptheria (ADULT) 03/01/2008 TD, Preservative Free 03/01/2008 TDAP (age 10 and older)(Boostrix) 10/16/2019 Zoster Vaccine Recombinant (Shingrix) 07/24/2020 ,02/27/2020 documented as of this encounter Social History Tobacco Use Types Packs/Day Years Used Date Smoking Tobacco: Former Cigarettes 1 15 1 945 - 1960 Smokeless Tobacco: Never Alcohol Use Standard Drinks/Week Comments Yes 1 (1 standard drink = 0.6 oz pur e alcohol) 1 beer a week PHQ-2 Answer Date Recorded PHQ Adult Total Score 0 03/12/2023 Hunger Vital Sign Answer Date Recorded Within the past 12 months, y ou worried that your food would run out before you got the money to buy more. Never true 03/12/20 23 Within the past 12 months, t he food you bought just didn't last and you didn't have money to get more. Never true 03/12/2023 Sex and Gender Information Value Date Recorded Sex Assigned at Male 02/13/2021 11:09 AM EDT Gender Identity Male 02/13/2021 11:09 AM EDT Sexual Orientation Straight 02/13/2021 11 :09 AM EDT Job Start Date Occupation Industry Not on file Not on file Not on file documented as of this encounter Miscellaneous Notes * Telephone Encounter - Karyn Tomas MD - 10/04/2023 8:16 AM EDT Please advised the pt to set up a clinic visit with me prior to next refill I sent the refill this time. * Telephone Encounter - Karyn Tomas MD - 10/04/2023 8:16 AM EDT Signed Prescriptions: Disp Refills traMADol HCl 50 MG Oral Tablet (Ultram) 30 Tab*0 Sig: Take 1 Tablet by mouth daily as needed for Pain, Severe. Authorizing Provider: KARYN TOMAS * Telephone Encounter - Simran Kimble [facility] - 10/02/2023 3:55 PM EDT Pending Prescriptions: Disp Refills traMADol HCl 50 MG Oral Tablet (Ultram) 60 Tab*0 Sig: TAKE ONE TABLET BY MOUTH EVERY SIX HOURS NEEDED FOR SEVERE PAIN * Telephone Encounter - Simran Kimble [facility] - 10/02/2023 3:54 PM EDT I have reviewed the patients controlled substance dispensing history in the Prescription Drug Monitoring Program in compliance with the [facility] regulations before prescribing a controlled substance. PDMP checked on 10/02/2023. Pending Prescriptions: Disp Refills traMADol HCl 50 MG Oral Tablet (Ultram) 60 Tab*0 Sig: TAKE ONE TABLET BY MOUTH EVERY SIX HOURS NEEDED FOR SEVERE PAIN Last Visit: 09/21/2023 (in office), Visit date not found (telemedicine) Next Visit: 04/05/2024 Date medication was last filled: 06/17/23 Date medication is due for refill: 06/24/23 Pharmacy: [facility] Is this request for a controlled substance? Yes and Urine Drug Screen Not completed Toxicology results: No results found for this or any previous visit. Please approve if appropriate. Thank You Simran Kimble, PharmD Clinical Pharmacist [facility] ([facility]) (formerly Telepharmacy) [phone] / [phone] 10/02/2023, 3:54 PM documented in this encounter Plan of Treatment Upcoming Encounters Date Type Department Care Team (Late st Contact Info) Description 11/04/2023 12:30 PM EDT Office Visit Cardiology [address] [place] [phone] Brittaney Cooper PA-C [address] [facility] [place] [address] 03/16/2024 11:00 AM EDT Nurse Only Ancillary [address] [place] [address] Nurse Kali [facility] [address] [place] [address] [place] [phone] 04/03/2024 10:15 AM EDT [facility] Visit [facility], [facility] [place] [address] Jorge Luis Benito MD [address] [facility] [address] [place] [address] 04/05/2024 3:20 PM EDT Office Visit Family Medicine [address] [place] [phone] Karyn Tomas MD [address] [place] [address] [place] [phone] Health Maintenance Due Date Last Done Comments Depression Screening 03/12/2024 03/12/2023 O2 ASSESSMENT COMPLETED IN PAST YEAR FOR COPD 09/20/2024 09/21/2023 DTaP,Tdap,and Td Vaccines (2 - Td or Tdap) 10/15/2029 10/16/2019, 03/01/2008, 03/01/2008 Pneumococcal Vaccine: 65+ Years Completed 11/01/2014, 04/24/2008, 04/23/1997 Zoster Vaccines Completed 07/24/2020, 02/27/2020 Alpha-1 Antitrypsin Completed 03/16/2022 COVID-19 Vaccine Completed 05/12/2023, 11/2021, 01/20/2022, Additional history exists Influenza Vaccine (FLU shot) Completed , 05/05/2022, 05/15/2021, Additional history exists GARDASIL-HPV IMMUNIZATION SERIES Aged Out No longer eligible based on patient's age to complete this topic Hepatitis B Aged Out No longer eligi ble based on patient's age to complete this topic MENINGOCOCCAL (MENACTRA/MENVEO) Aged Out No longer eligible based on patient's age to complete this topic documented as of this encounter Medical Devices Not on filedocumented as of this encounter Visit Diagnoses Diagnosis Chronic bilateral low back pain without sciatica documented in this encounter Care Teams Senior Medical Technologist Relationship Specialty Start Date End Date Karyn Tomas MD [address] [place] [address] [place] [phone] PCP - General Family Medicine 09/21/23 documented as of this encounter
--- OUTSIDE RECORDS SUMMARY | 2023-10-13 23:28 | External Medical Summary | Summary of Care ---
Author Name Unknown Organization [facility] Address [address] [place] [facility] [place] [address] Phone [phone] Care Team Providers Care Custom Harvester Name Role Phone Karyn Tomas MD Primary Care Provide r Encounter Details Date Type Department Care Team (Latest Contact Info) Description 09/21/2023 2:00 PM EDT Office Visit Family Medicine [address] [phone] Roya Canas PA-C [address] [place] [address] [place] [address] COPD, group B, by GOLD 2017 classification ([facility])*; Severe aortic stenosis; Silicosis ([facility]); Gastroesophageal reflux disease without esophagitis; Spinal stenosis of lumbar region without neurogenic claudication; BPH with obstruction/lower urinary tract symptoms; Hyperlipidemia with target LDL less than 130; Adjustment disorder with depressed mood; Atherosclerosis of [place] coronary artery of [place] heart without angina pectoris Allergies No known active allergiesdocumented as of this encounter (statuses as of 09/21/2023) Medications Medication Sig Dispensed Refills Start Date [...] the morning. 90 Capsule 3 03/31/2023 Active traMADol HCl 50 MG Oral Tablet (Ultram)Indications :Chronic bilateral low back pain without sciatica TAKE ONE TABLET BY MOUTH EVERY SIX HOURS NEEDED FOR SEVERE PAIN 60 Tablet 0 06/10/2023 Active Gabapentin 100 MG Oral Capsule (Neurontin)Indicati ons:Degeneration of lumbosacral intervertebral disc TAKE ONE CAPSULE BY MOUTH EVERY DAY BEFORE BEDTIME 100 Capsule 1 06/17/2023 4 Active Pantoprazole Sodium 20 MG Oral Tablet Delayed Release (Protonix) Take 1 Tablet by mouth in the morning. 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[place], brick Silicosis 03/12/2022 COPD, group B, by [...] as of this encounter (statuses as of 09/21/2023) Resolved Problems Problem Noted Date Diagnosed Date [...] as of this encounter (statuses as of 09/21/2023) Immunizations Name Administration Dates Next Due COVID-19 [...] Former Cigarettes 1 15 1 945 - 1959 Smokeless Tobacco: Never Alcohol Use Standard Drinks/Week [...] on file documented as of this encounter Last Filed Vital Signs Vital Sign Reading Time Taken Comments Blood Pressure 124/68 09/21/2023 1:55 PM EDT Pulse 76 09/21/2023 1:55 PM EDT Temperature 36.4 C (97.6 F) 09/21/2023 1:55 PM ED T Respiratory Rate 16 09/21/2023 1:55 PM EDT Oxygen Saturation 94% 09/21/2023 1:55 PM EDT Inhaled Oxygen Concentration - - Weight 93.4 kg (206 lb) 09/21/2023 1:55 PM EDT Height 175.3 cm (5' 9") 09/21/2023 1:55 PM EDT Body Mass Index 30.42 09/21/2023 1:55 PM EDT documented in this encounter Progress Notes * Roya Canas PA-C - 09/21/2023 2:00 PM EDT Nursing Notes: Martha Cloud, RADHA 09/21/23 1400 Sign at exiting of workspace Check up would like his tramadol refilled ( takes this for his Back)has surgey when he was young Pt here today for recheck. Pt with PMH of chronic back pain, GERD, BPH, dyslipidemia, , depression, CAD, COPD. Pt was just in the ER for dizziness. They thought he was probably dehydrated. They didgive him some fluids. This did help. Pt states that the dizziness is gone. Pt does have . Has appt with cardio in about 6 weeks. He does have some SOB but this is nothing new. This is from his severe . CT at hospital did show a small meningioma vs bleed. They repeated the CT and it hadn't changed so they didn't feel it was a bleed. Review of patient's allergies indicates: No Known Allergies Current Outpatient Medications Medication Sig Dispense Refill Baclofen 20 MG Oral Tablet Take 1 Tablet by mouth 3 times a day. As needed 60 Tablet 0 Triamcinolone Acetonide 0.1 % External Ointment (Aristocort) Apply 2x daily (or more if itchy instead of scratching) to back, elbows, knuckles or other areas on body that are bothersome until resolved 454 g 0 Polyethylene Glycol 3350 17 GM/SCOOP Oral Powder (MiraLax) Take by mouth 17 g in the morning. One cap full in juice, to effect 1 stool per day. .. 850 g 3 B-12 1000 MCG Oral Tablet Take by mouth 1 Tablet daily . Vitamin C 500 MG Oral Capsule Take by mouth . Terazosin HCl 10 MG Oral Capsule Take 1 Capsule by mouth at bedtime. 90 Capsule 3 Dutasteride 0.5 MG Oral Capsule (Avodart) Take 1 Capsule by mouth in the morning. 90 Capsule 3 traMADol HCl 50 MG Oral Tablet (Ultram) TAKE ONE TABLET BY MOUTH EVERY SIX HOURS NEEDED FOR SEVERE PAIN 60 Tablet 0 Gabapentin 100 MG Oral Capsule (Neurontin) TAKE ONE CAPSULE BY MOUTH EVERY DAY BEFORE BEDTIME 100 Capsule 1 No current facility-administered medications for this visit. Past Medical History: Diagnosis Date Acquired spondylolisthesis Anal sphincter incompetence 04/28/2013 Benign neoplasm of colon 11/15/2013 adenomatous polyps BMI 32.0-32.9,adult BMI 34.0-34.9,adult Chronic back pain 04/28/2013 Decreased anal sphincter tone 04/28/2013 Degeneration of lumbosacral intervertebral disc Mild bulge L4-5 Disorder of intervertebral disc Diverticulosis of colon (without mention of hemorrhage) 11/15/2013 descending colon Esophageal reflux Hyperlipidemia LDL goal < 130 Hypertrophy of prostate without urinary obstruction and other lower urinary tract symptoms (LUTS) Influenza A 06/27/2012 nasal swab Kidney stone on left side 12/28/2021 3 mm left ureteral stone Lumbago Moderate aortic stenosis 05/26/2018 Severe epistaxis 2009 Sleep apnea Spinal stenosis of lumbar region without neurogenic claudication Social History Socioeconomic History Marital status: Spouse name: Not on file Number of children: Not on file Years of education: Not on file Highest education level: Not on file Occupational History 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 No mold. 67yrs as of 03/05/2022 Social Determinants of Health Financial Resource Strain: Not on file Food Insecurity: No Food Insecurity (03/12/2023) Hunger Vital Sign Worried About Running Out of Food in the Last Year: Never true Ran Out of Food in the Last Year: Never true Transportation Needs: Not on file Physical Activity: Not on file Stress: Not on file Social Connections: Not on file Intimate Partner Violence: Not on file Housing Stability: Not on file O:Blood pressure 124/68, pulse 76, temperature 36.4 C (97.6 F), resp. rate 16, height 1.753 m (5' 9"), weight 93.4 kg (206 lb), SpO2 94%. GENERAL: alert, healthy, and no distress NECK: supple, no adenopathy, no bruits, thyroid normal size, non-tender, without nodularity EYES: PERRLA, conjunctiva are pink and non-injected, sclera clear EARS: External ears normal, Canals clear, TM's Normal NOSE: no mucosal erythema, no mucosal edema, no purulent discharge OROPHARYNX: no exudate, no erythema, lips, buccal mucosa, and tongue normal, and mucous membranes are moist HEART: regular rate & rhythm, no murmur, and no gallops LUNGS: chest symmetric with normal AP diameter, no chest deformities noted, no chest wall tenderness, lungs clear to auscultation EXTREMITIES: less than 2 second capillary refill, no joint deformities, effusion, or inflammation A:COPD, group B, by GOLD 2017 classification (HCC) (Primary) Severe aortic stenosis Silicosis (HCC) Gastroesophageal reflux disease without esophagitis 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 Any questions/problems, please call. If anything changes, worsens, develops new sx, please call JAY. Meningioma is very small (0.9 cm). Establishing with PCP in 6 months. Can talk about FU imaging(if needed) at that appt. I don't feel it needs to be followed unless he continues to have dizziness. Any questions/problems, please call. If anything changes, worsens, develops new sx, please call JAY. Follow-up: Return if symptoms worsen or fail to improve. | Check-out note: Schedule 6 mo check witha Doctor to establish Roya Canas PA-C documented in this encounter Nursing Notes * Martha Cloud RN - 09/21/2023 1:55 PM EDT Check up would like his tramadol refilled ( takes this for his Back)has surgey when he was young documented in this encounter Plan of Treatment Upcoming Encounters Date Type Department Care Team (Late st Contact Info) Description 11/04/2023 12:30 PM EDT Office Visit Cardiology [address] [place] [phone] Brittaney Cooper PA-C [address] [place] [phone] 03/16/2024 11:00 AM EDT Nurse Only Ancillary [address] [place] [phone] Kali, Nurse [facility] [address] [place] [address] [place] [address] 04/03/2024 10:15 AM EDT Office Visit [facility] [place] [address] Jorge Luis Benito MD [address] [facility] [address] [place] [address] 04/05/2024 3:20 PM EDT Office Visit Family Medicine [address] [place] [phone] Karyn Tomas MD [address] [place] [address] [place] [phone] Health Maintenance Due Date Last Done Comments [...] as of this encounter Visit Diagnoses Diagnosis COPD, group B, by GOLD 2017 classification ([facility])- Primary Severe aortic stenosis Aortic valve disorders Silicosis ([facility]) 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 Gastroesophageal reflux disease without esophagitis Esophageal reflux Spinal stenosis of lumbar region without neurogenic claudication Spinal stenosis, lumbar region, without neurogenic claudication BPH with obstruction/lower urinary tract symptoms Hypertrophy of prostate with urinary obstruction and other lower urinary tract symptoms (LUTS) Hyperlipidemia with target LDL less than 130 Other and unspecified hyperlipidemia Adjustment disorder with depressed mood Atherosclerosis of [place] coronary artery of [place] heart without angina pectoris documented in this encounter Care Teams Custom Harvester Relationship Specialty Start Date End Date Karyn Tomas MD [address] [place] [address] [place] [phone] PCP - General Family Medicine 09/21/23 documented as of this encounter
[2023-10-14 05:53] LABS: Basophils # (auto) 0.04 K/uL (0.00-0.20); Basophils % (auto) 0.5 %; Eosinophils # (auto) 0.07 K/uL (0.00-0.50); Eosinophils % (auto) 0.9 %; Hematocrit (blood only) 36.7 % (42.0-52.0); Hemoglobin 12.3 g/dl (14.0-18.0); Immature Granulocytes # (auto) 0.02 K/uL (0.01-0.20); Immature Granulocytes % (auto) 0.3 %; Lymphocytes # (auto) 2.31 K/uL (1.20-3.40); Lymphocytes % (auto) 30.7 %; Mean Corpuscular Hemoglobin 29.9 pg (25.0-34.0); Mean Corpuscular Hgb Conc 33.5 g/dL (32.0-36.0); Mean Corpuscular Volume 89.1 fL (80.0-100.0); Mean Platelet Volume 9.9 fL (9.4-12.4); Monocytes # (auto) 0.48 K/uL (0.11-0.59); Monocytes % (auto) 6.4 %; Neutrophils # (auto) 4.61 K/uL (1.40-6.50); Neutrophils % (auto) 61.2 %; Platelet Count 176 K/uL (130-400); RDW Coefficient of Variation 13.3 % (11.5-14.5); RDW Standard Deviation 43.3 fL (36.4-46.3); Red Blood Count 4.12 M/uL (4.70-6.10); White Blood Count 7.53 K/ul (4.8-10.8)
[2023-10-14 06:00] LABS: BUN Creatinine Ratio 22.8 (10-20); Calcium 9.3 mg/dl (8.6-10.3); Creatinine Clr Calc Pharmacy 57.3 ml/min; Est GFR (African American) 76.6 ml/min; Est GFR (Non-African American) 66.1 ml/min; Phosphorus 3.2 mg/dl (2.5-4.9); Potassium 4.1 mmol/L (3.5-5.1)
[2023-10-14 06:39] LABS: INR 1.1 (0.9-1.1); Prothrombin Time 11.6 Seconds (9.0-12.0)
--- NOTE | 2023-10-14 07:07 | Cardiology Progress Note ---
Date of Service October 14, 2023 Assessment & Plan (1) CHB (complete heart block): (2) Severe aortic stenosis: Plan IMPRESSION: 88-year-old male with severe aortic stenosis underlying conduction system disease with recent symptoms of lightheadedness and near syncope. Symptoms worsen last 24 hours ultimately resulting in ER presentation, 10/13/2023. EKG on presentation demonstrated A-V dissociation with ventricular escape rhythm in the 30s. During examination blood pressure notably declined and patient treated with IV atropine and begun on IV dopamine S/p emergent Schuster SJM dual-chamber pacemaker implantation 10/13/2023. Follow up EKG and CXR stable/unremarkable. PLAN: CHB: A-V dissociation with ventricular escape rhythm in the 30s status post dual- chamber permanent pacemaker 10/13/2023 -No lifting the left elbow or left shoulder for 1 month. No lifting more than 10 pounds with the left arm for 2 weeks. Keep the dressing on and dry until his wound check next week. -Establish in outpatient device clinic in 1 week + wound check. Severe aortic stenosis: Velocities 4.4 on echo 2021. Declining invasive workup in the past. Velocities now in the 5s, critical noted. Patient would like to think about TAVR options-- Plan to repeat limited echo in 1 month as outpatient to reassess AV gradients s/p ppm placement. Case discussed with Dr. Beasley. No further recommendations from a cardiology standpoint. Okay for discharge. Patient to keep follow-up in our office as scheduled. Will also get patient established with device clinic. I spent a total of 30 minutes on the date of service in preparation, delivery, and documentation of the care provided to the patient excluding any time spent in the performance of separately billed services. ALISIA Vallejo Department of Cardiology, [facility] This chart was completed in part utilizing Speech Voice Recognition Software. Gr ammatical errors, random word insertions, pronoun errors, and incomplete sentences are an occasional consequence of this system due to software limitations, ambient noise, and hardware issues. Any formal questions or concerns about the content, text, or information contained within the body of this dictation should be directly addressed to the provider for clarification. Admission and Anticipated Discharge Date Admission Date: October 13, 2023 Supervising Physician Co-Signing Physician Notes Patient was seen and personally examined. Full assessment and plan as well outlined above. Management and care discussed in detail with advanced provider, plan endorsed personally 88-year-old male presented with severely symptomatic high degree AV block as a progression of calcific disease and underlying conduction abnormalities. Underwent emergent dual-chamber pacemaker insertion yesterday Device functioning normally. Incision intact. Patient hemodynamically stable Stable for discharge today Plan follow-up with cardiology as originally scheduled Subjective 88-year-old male with severe aortic stenosis underlying conduction system disease with recent symptoms of lightheadedness and near syncope. Symptoms worsen last 24 hours ultimately resulting in ER presentation, 10/13/2023. EKG on presentation demonstrated A-V dissociation with ventricular escape rhythm in the 30s. During examination blood pressure notably declined and patient treated with IV atropine and begun on IV dopamine S/p emergent Schuster SJM dual-chamber pacemaker implantation 10/13/2023. Echo 10/13/2023: LVEF normal at 65 to 70%, no wall motion abnormalities. Moderate concentric LVH. Severe aortic stenosis with peak velocity of 554.9 cm/sec. mild MR. 10/14/2023: Upon entrance into the room patient resting comfortably in the chair. Denies any acute concerns. No chest pain or shortness of breath. No longer having episodes of lightheadedness. No palpitations.Denies fatigue. No orthopnea or PND. No lower extremity edema. Would like to go home to see his dog. Eager for discharge. EKG: AV dual paced rhythm, 60 bpm CXR: Stable, no pneumothorax. Telemetry: AV dual paced rhythm, 60s I/O: -250 mL Weight: 92 kg >>91 kg Review of Systems Review of Systems: All systems reviewed & are unremarkable except as noted in HPI & below Physical Exam Constitutional: WD/WN, vitals as above no acute distress Neck: normal visual inspection and trachea midline Respiratory: normal respiratory effort Auscultation: lungs clear to auscultation bilaterally; no rales, no rhonchi and no wheezes Cardiovascular: Rate/Rhythm: regular rate and regular rhythm Heart Sounds: normal S1, normal S2 (diminished) and + murmur (+3/6 systolic murmur ) Vessels: no JVD Extremities: no edema Chest (Breasts): Chest: + pacemaker (left chest, dressing intact ) Gastrointestinal (Abdomen): normal bowel sounds, soft, nontender, no hepatosplenomegaly Skin: no rashes, warm and dry Neurologic: PERRL, EOMI, accommodation nl, no face palsy, no dysarthria Psychiatric: A+Ox3, euthymic affect Results & Data Vital Signs (Past 12 Hours) Vital Signs Temp Pulse Pulse Resp BP Pulse Ox O2 Del Method 10/14/23 03:11 36.9 C 60 16 143/75 H 96 Room Air 10/13/23 23:14 78 10/13/23 22:56 37.0 C 76 18 123/73 96 Room Air 10/13/23 19:56 36.9 C 60 18 135/78 94 Room Air Laboratory Results Cardiac Enzymes 10/13/23 Range/Units 12:55 AST 17 (13-39) U/L Troponin I High Sens 19.6 (0-20) pg/ml Coagulation 10/13/23 10/14/23 Range/Units 12:55 05:15 PT 11.2 11.6 (9.0-12.0) Seconds APTT 26 (21-31) Seconds CBC 10/14/23 Range/Units 05:15 WBC 7.53 (4.8-10.8) K/ul RBC 4.12 L (4.70-6.10) M/uL Hgb 12.3 L (14.0-18.0) g/dl Hct 36.7 L (42.0-52.0) % Plt Count 176 (130-400) K/uL Neut # (Auto) 4.61 (1.40-6.50) K/uL Lymph # (Auto) 2.31 (1.20-3.40) K/uL [place] # (Auto) 0.48 (0.11-0.59) K/uL Eos # (Auto) 0.07 (0.00-0.50) K/uL Baso # (Auto) 0.04 (0.00-0.20) K/uL Comprehensive Metabolic Panel 10/13/23 10/14/23 Range/Units 12:55 05:15 Sodium 142 140 (136-145) mmol/L Potassium 4.4 4.1 (3.5-5.1) mmol/L Chloride 112 H 111 H (98-107) mmol/L Carbon Dioxide 26 23 (21-32) mmol/L BUN 30 H 23 (6-23) mg/dl Creatinine 1.23 1.01 (0.6-1.4) mg/dl Glucose 116 H 99 (70-99(Fasting)) mg/dl Calcium 9.5 9.3 (8.6-10.3) mg/dl AST 17 (13-39) U/L ALT 12 (7-52) U/L Alkaline Phosphatase 70 (34-104) U/L Total Protein 7.6 (6.0-8.3) gm/dl Albumin 4.1 (3.4-5.0) gm/dl Intake and Output 10/13/23 10/14/23 10/14/23 22:59 06:59 14:59 Intake Total 100 / 100 Output Total 50 / 350 300 / 350 Balance 50 / -250 -300 / -250 Intake: Oral 100 / 100 Output: Urine 50 / 350 300 / 350 Other: Weight 91.716 kg 91 kg Weight Measurement Method Built in [facility]
[2023-10-14] MEDS: FINASTERIDE 5 MG TAB PO SCH (08:00)
[2023-10-14] MEDS: PANTOprazole 40 MG TAB PO SCH (08:00)
--- NOTE | 2023-10-14 08:53 | XRay Report ---
XR chest 2V PA/lateral CLINICAL HISTORY: s/p ppm COMPARISON STUDY: Chest radiograph October 13, 2023. FINDINGS: There is no pneumothorax following placement of a dual-lead left subclavian pacer. Lead tip s project over the right atrial appendage and the right ventricle. There is no evidence for pulmonary edema. There are trace bilateral pleural effusions. Cardiomegaly is unchanged. Chronic reticulonodul ar interstitial thickening is incidentally noted. IMPRESSION: No pneumothorax following placement of a dual-lead left subclavian pacemaker. ACT 112: Negative or not required by law. Electronically signed by: Walter Wilson M.D. 10/14/2023 8:51 AM
--- NOTE | 2023-10-14 09:08 | Electrocardiogram Report ---
Test Reason : Blood Pressure : / mmHG Vent. Rate : 062 BPM Atrial Rate : 062 BPM P-R Int : 184 ms QRS Dur : 140 ms QT Int : 448 ms P-R-T Axes : 035 -56 116 degrees QTc Int : 454 ms Atrial-sensed ventricular-paced rhythm Abnormal ECG When compared with ECG of 13-OCT-2023 12:53, Electronic ventricular pacemaker has replaced Idioventricular rhythm Vent. rate has increased BY 22 BPM Confirmed by David Hector ([id number]) on 10/14/2023 9:07:42 AM Referred By: REFERRED SELF Confirmed By:Vicente Hector
--- NOTE | 2023-10-14 09:16 | Electrocardiogram Report ---
Test Reason : Blood Pressure : / mmHG Vent. Rate : 060 BPM Atrial Rate : 060 BPM P-R Int : 178 ms QRS Dur : 146 ms QT Int : 474 ms P-R-T Axes : -13 -50 114 degrees QTc Int : 474 ms AV dual-paced rhythm Abnormal ECG When compared with ECG of 14-OCT-2023 06:02, (unconfirmed) No significant change was found Confirmed by David Hector ([id number]) on 10/14/2023 9:15:40 AM Referred By: REFERRED SELF Confirmed By:Vicente Hector
--- NOTE | 2023-10-14 09:16 | Electrocardiogram Report ---
Test Reason : Blood Pressure : / mmHG Vent. Rate : 060 BPM Atrial Rate : 060 BPM P-R Int : 210 ms QRS Dur : 104 ms QT Int : 424 ms P-R-T Axes : 000 -62 124 degrees QTc Int : 424 ms AV dual-paced rhythm with prolonged AV conduction Abnormal ECG When compared with ECG of 13-OCT-2023 19:31, (unconfirmed) Vent. rate has decreased BY 2 BPM Confirmed by David Hector ([id number]) on 10/14/2023 9:15:32 AM Referred By: REFERRED SELF Confirmed By:Vicente Hector
--- NOTE | 2023-10-14 12:09 | Discharge Summary ---
Date of Service October 14, 2023 Admission HPI Per Admitting Provider Mr. Peacock is an 88 year old gentleman with past medical history remarkable for aortic stenosis, BPH, GERD, COPD, HLD, HTN who is admitted due to dizziness and found to have high grade AV block with rates in 30s. Patient reported ongoing issues with dizziness on exertion. Patient presented in 08/2023 for similar concerns but work up was negative at that time--EKG with 1st av block noted at that time. On presentation, In the ED, vitals were notable for BP of 150s initially then 70s prompting atropine and dopamine, HR of 30s with small increase to 40s with atropine and O2 sat of low 90s. EKG with AV node dissociation. ED interventions: atropine, dopamine Consultants: Cardiology. EP, ICU Patient to be admitted to ICU for further evaluation and management of high degree AV block pending urgent device placement Admission Exam Per Admitting Provider GENERAL APPEARANCE: AxOx4, tired appearing frail gentleman HEENT: NC, AT. MMM. EOMI, clear conjunctiva, oropharynx clear. NECK: Supple without lymphadenopathy. No stiffness or restricted ROM. HEART: irregular, bradycardic LUNGS: CTAB, moving air well. No crackles or wheezes are heard. ABDOMEN: Soft, nontender, nondistended with good bowel sounds heard. EXTREMITIES: Without cyanosis, clubbing or edema. NEUROLOGICAL: Grossly nonfocal. Alert and oriented, moving all 4 extremities. CN not formally tested but appear grossly intact. Observed to ambulate with normal gait. Skin: Warm and dry without any rash. Principal Diagnosis Complete heart block s/p PPM. Severe aortic stenosis Discharge Exam General: Sitting comfortably in bed, not in distress, on room air HEENT: EOMI, YARITZA, MMM Chest: PPM site clean dry intact, LUE in sling. Clear breath sounds bilaterally, no wheezes or crackles CVS: Regular, normal heart sounds, systolic murmur Abdomen: Soft, non tender, not distended, normal bowel sounds Neuro: Awake, alert, oriented, conversing well, non focal Extremities: No cyanosis, clubbing or edema Discharge Data Allergies Allergy/AdvReac Type Severity Reaction Status Date / Time No Known Allergies Allergy Verified 09/16/23 17:37 Consultations 10/13/23 13:38 ED Decision to Admit Stat 10/13/23 14:06 Consult Cardiology Routine 10/13/23 14:21 Consult [place] Utility Worker Routine Procedures Performed Operation Date: 10/13/23 15:00 Actual Procedures p Pacer with A/V Leads (Dual) - DO rachele García Venogram, Unilateral - DO rachele García Bundle of his Recording - Darby Peterson DO Ordered Studies 10/13/23 15:15 EP Lab Images for PACS ONCE Laboratory Results WBC 7.53 K/ul (4.8-10.8) 10/14/23 05:15 RBC 4.12 M/uL (4.70-6.10) L 10/14/23 05:15 Hgb 12.3 g/dl (14.0-18.0) L 10/14/23 05:15 POC Hgb 13.6 g/dl (14.0-18.0) L 10/13/23 13:00 Hct 36.7 % (42.0-52.0) L 10/14/23 05:15 POC Hct 40 % (42-52) L 10/13/23 13:00 MCV 89.1 fL (80.0-100.0) 10/14/23 05:15 MCH 29.9 pg (25.0-34.0) 10/14/23 05:15 MCHC 33.5 g/dL (32.0-36.0) 10/14/23 05:15 RDW Std Deviation 43.3 fL (36.4-46.3) 10/14/23 05:15 RDW Coeff of Sharmin 13.3 % (11.5-14.5) 10/14/23 05:15 Plt Count 176 K/uL (130-400) 10/14/23 05:15 MPV 9.9 fL (9.4-12.4) 10/14/23 05:15 Immature Gran % (Auto) 0.3 % 10/14/23 05:15 Neut % (Auto) 61.2 % 10/14/23 05:15 Lymph % (Auto) 30.7 % 10/14/23 05:15 [place] % (Auto) 6.4 % 10/14/23 05:15 Eos % (Auto) 0.9 % 10/14/23 05:15 Baso % (Auto) 0.5 % 10/14/23 05:15 Neut # (Auto) 4.61 K/uL (1.40-6.50) 10/14/23 05:15 Lymph # (Auto) 2.31 K/uL (1.20-3.40) 10/14/23 05:15 [place] # (Auto) 0.48 K/uL (0.11-0.59) 10/14/23 05:15 Eos # (Auto) 0.07 K/uL (0.00-0.50) 10/14/23 05:15 Baso # (Auto) 0.04 K/uL (0.00-0.20) 10/14/23 05:15 Immature Gran # (Auto) 0.02 K/uL (0.01-0.20) 10/14/23 05:15 PT 11.6 Seconds (9.0-12.0) 10/14/23 05:15 INR 1.1 (0.9-1.1) 10/14/23 05:15 APTT 26 Seconds (21-31) 10/13/23 12:55 PTT Ratio 0.9 10/13/23 12:55 POC Sodium 144 mmol/L (135-144) 10/13/23 13:00 Sodium 140 mmol/L (136-145) 10/14/23 05:15 POC Potassium 4.3 mmol/L (3.3-5.0) 10/13/23 13:00 Potassium 4.1 mmol/L (3.5-5.1) 10/14/23 05:15 POC Chloride 111 mmol/L (101-112) 10/13/23 13:00 Chloride 111 mmol/L (98-107) H 10/14/23 05:15 Carbon Dioxide 23 mmol/L (21-32) 10/14/23 05:15 POC Total CO2 25 mmol/L (24-31) 10/13/23 13:00 Anion Gap 6 (3-11) 10/14/23 05:15 POC Anion Gap 14.0 mmol/L (16-25) L 10/13/23 13:00 POC BUN 28 mg/dl (7-18) H 10/13/23 13:00 BUN 23 mg/dl (6-23) 10/14/23 05:15 Creatinine 1.01 mg/dl (0.6-1.4) 10/14/23 05:15 POC Creatinine 1.3 mg/dl (0.6-1.3) 10/13/23 13:00 Est Cr Clr Drug Dosing 57.3 ml/min 10/14/23 05:15 Est GFR ( Amer) 76.6 ml/min 10/14/23 05:15 Est GFR (Non-Af Amer) 66.1 ml/min 10/14/23 05:15 BUN/Creatinine Ratio 22.8 (10-20) H 10/14/23 05:15 Glucose 99 mg/dl (70-99(Fasting)) 10/14/23 05:15 POC Glucose 101 mg/dl (70-99) H 10/13/23 17:54 POC Glucose (other) 112 mg/dl (70-99) H 10/13/23 13:00 Calcium 9.3 mg/dl (8.6-10.3) 10/14/23 05:15 POC Ioniz Calcium Rin 1.22 mmol/l (1.12-1.32) 10/13/23 13:00 Phosphorus 3.2 mg/dl (2.5-4.9) 10/14/23 05:15 Magnesium 2.0 mg/dl (1.7-2.4) 10/14/23 05:15 Total Bilirubin 0.4 mg/dl (0.2-1.0) 10/13/23 12:55 AST 17 U/L (13-39) 10/13/23 12:55 ALT 12 U/L (7-52) 10/13/23 12:55 Alkaline Phosphatase 70 U/L (34-104) 10/13/23 12:55 Troponin I High Sens 19.6 pg/ml (0-20) 10/13/23 12:55 Total Protein 7.6 gm/dl (6.0-8.3) 10/13/23 12:55 Albumin 4.1 gm/dl (3.4-5.0) 10/13/23 12:55 Globulin 3.5 gm/dl (2.5-4.0) 10/13/23 12:55 Albumin/Globulin Ratio 1.2 (0.9-2) 10/13/23 12:55 Lipase 16 U/L (11-82) 10/13/23 12:55 TSH 3.828 uIu/ml (0.300-4.500) 10/13/23 12:55 Lyme Disease Screen Negative (Negative) 10/13/23 14:54 Impressions Chest X-Ray 10/14/23 07:07 XR chest 2V PA/lateral CLINICAL HISTORY: s/p ppm COMPARISON STUDY: Chest radiograph October 13, 2023. FINDINGS: There is no pneumothorax following placement of a dual-lead left subclavian pacer. Lead tips project over the right atrial appendage and the right ventricle. There is no evidence for pulmonary edema. There are trace bilateral pleural effusions. Cardiomegaly is unchanged. Chronic reticulonodular interstitial thickening is incidentally noted. IMPRESSION: No pneumothorax following placement of a dual-lead left subclavian pacemaker. ACT 112: Negative or not required by law. Electronically signed by: Walter Wilson M.D. 10/14/2023 8:51 AM Hospital Course (1) CHB (complete heart block): (2) Severe aortic stenosis: (3) BPH (benign prostatic hyperplasia): Plan Mr. Peacock is an 88 year old gentleman with history of aortic stenosis, BPH, GERD, COPD, HLD, HTN who is admitted due to dizziness and found to have high grade AV block with rates in 30s. Patient initially was hemodynamically stable outside of bradycardia, however, became hypotensive prompting x1 atropine and dopamine drip initiation in ED. Patient was admitted to ICU for hemodynamic monitoring and inotrope while awaiting pacemaker placement. He underwent emergent PPM yesterday. Post operative course was unremarkable. Device functioning normally. Incision intact. Patient hemodynamically stable. Asymptomatic. Ambulating without issues. Cleared by cardiology for discharge. He will follow-up with cardiology upon discharge as scheduled. Total Time Total Time Spent Total Time Spent (In Minutes): 32 Discharge Plan Discharge Items Patient Disposition: Home - Self-Care Reason For Visit: HIGH DEGREE AV BLOCK, DIZZINESS Discharge Diagnosis: Complete Heart block, Severe Activity: As commented below Activity Comment: do not raise the left elbow over the left shoulder for 1 month Lifting: No more than 10 pounds Lifting Comment: do not lift more than 10 pounds with the left arm for 2 weeks Bathing: Keep incision dry Bathing Comment: keep dressing on & dry until wound check Non-emergency contact: Primary Care Provider and Loan Interviewer Call non-emergency contact if: you have any medication questions, your symptoms worsen, your pain is not controlled, you have a fever, your wound has increased redness and your wound has increased drainage Follow-up/Referrals: Brittaney Cooper PA-C [Physician Circus Artist] - (Date & Time 10/21/2023 2:30 PM Provider Brittaney Cooper PA-C Department Cardiology, [facility] ) Darby Peterson DO [Physician] - (The Pacemaker clinic will contact you for a follow up appointment/wound check. ) Karyn Tomas MD [Primary Care Provider] - (Date & Time 10/20/2023 11:40 AM Provider Roya Canas PA-C Department Family Medicine [facility] ) Diet: Heart Healthy Addtl Attending Provider Instructions: Device and wound check at [facility] Cardiology next week -No lifting the left elbow or left shoulder for 1 month. No lifting more than 10 pounds with the left arm for 2 weeks. Keep the dressing on and dry until wound check next week. -Establish in outpatient device clinic in 1 week + wound check. Pending Studies at Discharge: No Stand-Alone Forms: My [facility], Smoking Cessation Medications and DC Order Prescriptions: Continued terazosin 10 mg capsule 10 mg PO QAM dutasteride 0.5 mg capsule 0.5 mg PO QAM gabapentin 100 mg capsule 100 mg PO HS Discharge Orders: Discharge Order (Routine); Ordered 10/14/23 Ordered By: Julian Montanez Admission Data Admit Date/Time: 10/13/23 15:16 Attending Provider: Julian Montanez Admit Provider: Destinee Newsome Primary Care Provider: Karyn Tomas Other Providers: Destinee Newsome; Ty Ng Other Interventions: Discharge Summary Assessment (RN) Last Done: 10/14/23 13:39 Supervising Physician Co-Signing Physician Notes Patient was seen and personally examined. Full assessment and plan as outlined by advanced provider above. Care and plan discussed in detail and endorsed personally 88-year-old male with severe aortic stenosis underlying conduction system di sease with recent symptoms of lightheadedness and near syncope. Symptoms worsen last 24 hours ultimately resulting in ER presentation. EKG on presentation demonstrates A-V dissociation with ventricular escape rhythm in the 30s. During examination blood pressure notably declined and patient treated with IV atropine and begun on IV dopamine Plan dual-chamber pacemaker urgently today Previously tolerable at low-level activities prior to current complaints
[2023-10-14] MEDS ORDERED: ATROPINE SULFATE 0.1 MG/ML 5ML SYR IV ONE (15:12)
== END 2023-10-14 15:13 | disposition home or self-care (01) | DRG 244 ==
LOC: ED 12:41 → CC 15:15 → 2E 15:15 → SUATTDRO 15:16